=== PATIENT | female | born 1985 | race African-American/Black ===

== ENCOUNTER 2017-01-02 18:13 | Emergency (ER) | payer MEDICARE, OTHER ==
[~2017-01-02 18:13] MED LIST: BENZ100 PO; FLUT1SPR9; ULTR50TA PO; VALT500T PO; ZITH250T PO
[2017-01-02 18:15] VITALS: BP 122/59; PULSE 84; RESP 15; TEMP 99.9; O2SAT 99
--- NOTE | 2017-01-02 18:50 | PD ---
Physical Exam Date Seen by Provider: Jan 02, 2017 Time Seen by Provider: 18:47 Narrative 31 yo female here for abdominal pain. Has had this since today. Nausea and vomit. Pain is 7/10. No diarrhea. No chest pain or SOB. Of note patient is eating and drinking soda in triage. Vitals stable in triage. Awaiting bed placement. Data Data Last Documented VS Vital Signs Date Time Temp Pulse Resp B/P (MAP) Pulse Ox O2 Delivery O2 Flow Rate FiO2 01/02/17 18:15 99.9 84 15 122/59 (80) 99 MDM Medical Record Reviewed: Yes Supervised Visit with KENNY: No Elliott Elizabeth Jan 02, 2017 18:50
[2017-01-02] MEDS ORDERED: SODIUM CHLORIDE 0.9% FLUSH 10 ML FLUSH IV FLUSH PRN (20:00)
--- NOTE | 2017-01-02 20:04 | PD ---
HPI . 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 Patient has been she's had abdominal pain for 24 hours. She feels like a ripping sensation in her entire abdomen. 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 She rates the pain as 9.5 out of 10. Localized to one area and moves around her entire abdomen. She has drawn a aliya shape in her abdomen and told me the pain is located within there. She also reports vaginal discharge and tells me that she has possible STD exposure. PFSH Past Medical History Anxiety: Yes Depression: Yes Cancer: No Diabetes: Yes Diminished Hearing: No Psychiatric: No Immunizations Current: Yes Seizures: No Thyroid Disease: No Ulcer: No Tetanus Vaccination: < 5 Years Influenza Vaccination: No ?: Unknown LMP: 12/28/16 : 0 Past Surgical History Other Surgery: Yes (GANGLION CYST REMOVED FROM WRIST IN PAST) Social History Alcohol Use: Yes (OCCASIONAL) Tobacco Use: No Substance Use: Yes (MARIJUANA) Allergies-Medications (Allergen,Severity, Reaction): Coded Allergies: ibuprofen (Verified Allergy, Severe, Itching, 01/02/17) tramadol (Verified Allergy, Severe, Seizures, 01/02/17) Reported Meds & Prescriptions Reported Meds & Active Scripts Active Flagyl (Metronidazole) 500 Mg Tab 500 Mg PO TID 7 Days Review of Systems General / Constitutional: No: Fever Eyes: No: Visual changes HENT: No: Headaches Cardiovascular: No: Chest Pain or Discomfort Respiratory: No: Shortness of Breath Gastrointestinal: Positive: Abdominal Pain Genitourinary: Positive: Discharge, No: Dysuria Musculoskeletal: No: Pain Skin: No Rash Neurologic: No: Weakness Psychiatric: No: Depression Endocrine: No: Polydipsia Hematologic/Lymphatic: No: Easy Bruising Physical Exam Narrative GENERAL: AAO x 3, no acute distress, Well-nourished, well-developed patient. SKIN: Warm and dry. No visible rashes or bruising. HEAD: Normocephalic and atraumatic. EYES: No scleral icterus. No injection or drainage.PERRLA ENT: No nasal drainage noted. Mucous membranes pink. Airway patent. Moist mucous membranes NECK: Supple, trachea midline. No JVD. CARDIOVASCULAR: Regular rate and rhythm without murmurs, gallops, or rubs. RESPIRATORY: Breath sounds equal bilaterally. No accessory muscle use. No rhonchi or rales. GASTROINTESTINAL: Abdomen soft, patient brushes my hand away with very gentle palpation GENITAL: Lyudmila RN present; + cervical drainage, clear and mucoid like, no cervical motion tenderness, external genitalia normal EXTREMITIES: No cyanosis or edema. BACK: No obvious deformity. No CVA tenderness. NEURO: CN II-12 intact, PSYCH: AAO x 3, normal affect. Data Data Last Documented VS Vital Signs Date Time Temp Pulse Resp B/P (MAP) Pulse Ox O2 Delivery O2 Flow Rate FiO2 01/02/17 21:48 01/02/17 18:15 99.9 84 15 99 Orders Orders Complete Blood Count With Diff (01/02/17 19:49) Comprehensive Metabolic Panel (01/02/17 19:49) Lipase (01/02/17 19:49) Urinalysis - C+S If Indicated (01/02/17 19:49) Ct Abd/Pel W Iv Contrast(Rout) (01/02/17 19:49) Iv Access Insert/Monitor (01/02/17 19:49) Ecg Monitoring (01/02/17 19:49) Oximetry (01/02/17 19:49) Sodium Chloride 0.9% Flush (Ns Flush) (01/02/17 20:00) Gc And Chlamydia Pcr (01/02/17 19:49) Wet Prep Profile (01/02/17 19:49) Ed Urine Pregnancytest Poc (01/02/17 19:49) Azithromycin Powd Pack (Zithromax Powd P (01/02/17 20:15) Ceftriaxone Inj (Rocephin Inj) (01/02/17 20:15) Lidocaine 1% Inj (50 Ml) (Xylocaine 1% I (01/02/17 20:15) Iohexol 350 Inj (Omnipaque 350 Inj) (01/02/17 20:46) Labs Laboratory Tests Test 01/02/17 19:53 01/02/17 20:00 White Blood Count 7.8 TH/MM3 Red Blood Count 4.41 MIL/MM3 Hemoglobin 12.6 GM/DL Hematocrit 38.8 % Mean Corpuscular Volume 87.9 FL Mean Corpuscular Hemoglobin 28.5 PG Mean Corpuscular Hemoglobin Concent 32.4 % Red Cell Distribution Width 14.3 % Platelet Count 314 TH/MM3 Mean Platelet Volume 8.1 FL Neutrophils (%) (Auto) 39.5 % Lymphocytes (%) (Auto) 48.4 % Monocytes (%) (Auto) 5.8 % Eosinophils (%) (Auto) 5.6 % Basophils (%) (Auto) 0.7 % Neutrophils # (Auto) 3.1 TH/MM3 Lymphocytes # (Auto) 3.8 TH/MM3 Monocytes # (Auto) 0.5 TH/MM3 Eosinophils # (Auto) 0.4 TH/MM3 Basophils # (Auto) 0.1 TH/MM3 CBC Comment DIFF FINAL Differential Comment Blood Urea Nitrogen 16 MG/DL Creatinine 1.16 MG/DL Random Glucose 86 MG/DL Total Protein 7.9 GM/DL Albumin 3.7 GM/DL Calcium Level 9.0 MG/DL Alkaline Phosphatase 64 U/L Aspartate Amino Transf (AST/SGOT) 15 U/L Alanine Aminotransferase (ALT/SGPT) 20 U/L Total Bilirubin 0.3 MG/DL Sodium Level 140 MEQ/L Potassium Level 3.7 MEQ/L Chloride Level 105 MEQ/L Carbon Dioxide Level 27.9 MEQ/L Anion Gap 7 MEQ/L Estimat Glomerular Filtration Rate 67 ML/MIN Lipase 207 U/L Urine Color YELLOW Urine Turbidity CLEAR Urine pH 5.5 Urine Specific [place] 1.027 Urine Protein TRACE mg/dL Urine Glucose (UA) NEG mg/dL Urine Ketones NEG mg/dL Urine Occult Blood NEG Urine Nitrite NEG Urine Bilirubin NEG Urine Urobilinogen LESS THAN 2.0 MG/DL Urine Leukocyte Esterase NEG Urine RBC LESS THAN 1 /hpf Urine WBC LESS THAN 1 /hpf Urine Squamous Epithelial Cells 1 /hpf Urine Mucus FEW /lpf Microscopic Urinalysis Comment CULT NOT INDICATED Clue Cells (Wet Prep) PRESENT Vaginal Trichomonas (Wet Prep) NONE SEEN Vaginal Yeast (Wet Prep) NONE SEEN Chlamydia trachomatis DNA (PCR) NOT DETECTED Neisseria gonorrhoeae DNA (PCR) NOT DETECTED MDM Medical Decision Making Medical Screen Exam Complete: Yes Emergency Medical Condition: Yes Medical Record Reviewed: Yes Differential Diagnosis cervicitis, gonorrhea, chlamydia, appendicitis, colitis, gastritis Narrative Course 31 yr old female here with diffuse abdominal pain. Patient has diffuse abdominal pain on exam. Labs ordered. CT abd/pelvis ordered. Patient has some vaginal discharge. I will perform a pelvic exam. Wet prep and GC PCR ordered. I have discussed treatment vs. notification for GC and patient opted for treatment. Azithromycin and Rocephin administered. Laboratory Tests Test 01/02/17 19:53 01/02/17 20:00 White Blood Count 7.8 TH/MM3 Red Blood Count 4.41 MIL/MM3 Hemoglobin 12.6 GM/DL Hematocrit 38.8 % Mean Corpuscular Volume 87.9 FL Mean Corpuscular Hemoglobin 28.5 PG Mean Corpuscular Hemoglobin Concent 32.4 % Red Cell Distribution Width 14.3 % Platelet Count 314 TH/MM3 Mean Platelet Volume 8.1 FL Neutrophils (%) (Auto) 39.5 % Lymphocytes (%) (Auto) 48.4 % Monocytes (%) (Auto) 5.8 % Eosinophils (%) (Auto) 5.6 % Basophils (%) (Auto) 0.7 % Neutrophils # (Auto) 3.1 TH/MM3 Lymphocytes # (Auto) 3.8 TH/MM3 Monocytes # (Auto) 0.5 TH/MM3 Eosinophils # (Auto) 0.4 TH/MM3 Basophils # (Auto) 0.1 TH/MM3 CBC Comment DIFF FINAL Differential Comment Blood Urea Nitrogen 16 MG/DL Creatinine 1.16 MG/DL Random Glucose 86 MG/DL Total Protein 7.9 GM/DL Albumin 3.7 GM/DL Calcium Level 9.0 MG/DL Alkaline Phosphatase 64 U/L Aspartate Amino Transf (AST/SGOT) 15 U/L Alanine Aminotransferase (ALT/SGPT) 20 U/L Total Bilirubin 0.3 MG/DL Sodium Level 140 MEQ/L Potassium Level 3.7 MEQ/L Chloride Level 105 MEQ/L Carbon Dioxide Level 27.9 MEQ/L Anion Gap 7 MEQ/L Estimat Glomerular Filtration Rate 67 ML/MIN Lipase 207 U/L Urine Color YELLOW Urine Turbidity CLEAR Urine pH 5.5 Urine Specific [place] 1.027 Urine Protein TRACE mg/dL Urine Glucose (UA) NEG mg/dL Urine Ketones NEG mg/dL Urine Occult Blood NEG Urine Nitrite NEG Urine Bilirubin NEG Urine Urobilinogen LESS THAN 2.0 MG/DL Urine Leukocyte Esterase NEG Urine RBC LESS THAN 1 /hpf Urine WBC LESS THAN 1 /hpf Urine Squamous Epithelial Cells 1 /hpf Urine Mucus FEW /lpf Microscopic Urinalysis Comment CULT NOT INDICATED Clue Cells (Wet Prep) PRESENT Vaginal Trichomonas (Wet Prep) NONE SEEN Vaginal Yeast (Wet Prep) NONE SEEN Patient appears to have BV. I have discussed the case with my attending Dr. Fraga. She will disposition the patient. Scripts Metronidazole (Flagyl) 500 Mg Tab 500 MG PO TID for Infection for 7 Days, TAB 0 Refills Prov: Irene Fraga MD 01/02/17 Condition: Stable Jo Ruiz Jan 02, 2017 20:04
[2017-01-02] MEDS ORDERED: AZITHROMYCIN PWD FOR SUSP 1 GM PACKET PO ONE (20:15)
[2017-01-02] MEDS ORDERED: LIDOCAINE HCL 1% 50 ML VIAL IM ONE (20:15)
[2017-01-02] MEDS ORDERED: cefTRIAXone 250 MG VIAL IM ONE (20:15)
[2017-01-02 20:19] LABS: AUTOMATED NEUTROPHIL # 3.1 TH/MM3 (1.8-7.7); BASOPHIL # 0.1 TH/MM3 (0-0.2); BASOPHIL % 0.7 % (0.0-2.0); EOSINOPHIL # 0.4 TH/MM3 (0-0.4); EOSINOPHIL % 5.6 % (0.0-4.0); HEMATOCRIT 38.8 % (35.0-46.0); HEMO FLAGS DIFF FINAL; LYMPH % 48.4 % (9.0-44.0); LYMPHOCYTE # 3.8 TH/MM3 (1.0-4.8); MEAN CELL VOLUME 87.9 FL (80.0-100.0); MEAN CORPUSCULAR HEMOGLOBIN 28.5 PG (27.0-34.0); MEAN CORPUSCULAR HGB CONC 32.4 % (32.0-36.0); MONO % 5.8 % (0.0-8.0); NEUT % 39.5 % (16.0-70.0); PLATELET COUNT 314 TH/MM3 (150-450); RED BLOOD COUNT 4.41 MIL/MM3 (4.00-5.30); RED CELL DISTRIBUTION WIDTH 14.3 % (11.6-17.2); WHITE BLOOD COUNT 7.8 TH/MM3 (4.0-11.0)
[2017-01-02 20:36] LABS: ALT (GPT) 20 U/L (10-53)
[2017-01-02 20:37] LABS: BLOOD, URINE NEG (NEG); COMMENT (UR) CULT NOT INDICATED; CULTURE IF INDICATED CULT NOT INDICATED; GLUCOSE,URINE NEG (NEG); KETONE, URINE NEG (NEG); MUCUS URINE FEW /lpf (OCC); NITRITE,URINE NEG (NEG); PH, URINE 5.5 (5.0-8.5); SQUAMOUS EPITHELIAL CELL URINE 1 /hpf (0-5); URINE COLOR YELLOW (YELLW/STRAW)
[2017-01-02 20:38] LABS: ALKALINE PHOSPHATASE 64 U/L (45-117); TOTAL BILIRUBIN ADULT 0.3 MG/DL (0.2-1.0)
[2017-01-02 20:46] LABS: ANION GAP 7 MEQ/L (5-15); AST (GOT) 15 U/L (15-37); BICARBONATE 27.9 MEQ/L (21.0-32.0); BLOOD UREA NITROGEN 16 MG/DL (7-18); CHLORIDE 105 MEQ/L (98-107); GLOMERULAR FILTRATION RATE 67 ML/MIN (>89); POTASSIUM 3.7 MEQ/L (3.5-5.1); SODIUM (NA) 140 MEQ/L (136-145)
[2017-01-02] MEDS ORDERED: IOHEXOL 350 MG/ML 10 ML VIAL (for RAD DIAG) IVCONTRAST ONE (20:46)
--- NOTE | 2017-01-02 21:01 | RADRPT ---
EXAM DATE/TIME: 01/02/2017 20:37 [facility] COMPARISON: No previous studies available for comparison. INDICATIONS : Diffuse abdomen pain for two days. IV CONTRAST: 97 cc Omnipaque 350 (iohexol) IV ORAL CONTRAST: No oral contrast ingested. RADIATION DOSE: 12.31 CTDIvol (mGy) MEDICAL HISTORY : diabetes SURGICAL HISTORY : None. ENCOUNTER: Initial ACUITY: 2 days PAIN SCALE: 10/10 LOCATION: Bilateral abdomen TECHNIQUE: Volumetric scanning of the abdomen and pelvis was performed. Using automated exposure control and ad justment of the mA and/or kV according to patient size, radiation dose was kept as low as reasonably achievable to obtain optimal diagnostic quality images. DICOM format image data is available electro nically for review and comparison. FINDINGS: LOWER LUNGS: The visualized lower lungs are clear. LIVER: Homogeneous density without lesion. There is no dilation of the biliary tree. No calcified gallston es. SPLEEN: Normal size without lesion. PANCREAS: Within normal limits. KIDNEYS: Normal in size and shape. There is no mass, stone or hydronephrosis. ADRENAL GLANDS: Within normal limits. VASCULAR: There is no aortic aneurysm. BOWEL/MESENTERY: The stomach, small bowel, and colon demonstrate no acute abnormality. There is no free intraperitone al air or fluid. Appendix and terminal ileum are normal. ABDOMINAL WALL: Within normal limits. RETROPERITONEUM: There is no lymphadenopathy. BLADDER: No wall thickening or mass. REPRODUCTIVE: Within normal limits. INGUINAL: There is no lymphadenopathy or hernia. MUSCULOSKELETAL: Within normal limits for patient age. CONCLUSION: No acute abnormality is identified in the pelvis. Rober Alfaro MD on January 02, 2017 at 20:57 Board Certified Radiologist. This report was verified electronically.
[2017-01-02] MEDS ORDERED: METR-1 PO (21:41)
--- NOTE | 2017-01-02 21:41 | PD ---
Data Data Last Documented VS Vital Signs Date Time Temp Pulse Resp B/P (MAP) Pulse Ox O2 Delivery O2 Flow Rate FiO2 01/02/17 18:15 99.9 84 15 122/59 (80) 99 Orders Orders Complete Blood Count With Diff (01/02/17 19:49) Comprehensive Metabolic Panel (01/02/17 19:49) Lipase (01/02/17 19:49) Urinalysis - C+S If Indicated (01/02/17 19:49) Ct Abd/Pel W Iv Contrast(Rout) (01/02/17 19:49) Iv Access Insert/Monitor (01/02/17 19:49) Ecg Monitoring (01/02/17 19:49) Oximetry (01/02/17 19:49) Sodium Chloride 0.9% Flush (Ns Flush) (01/02/17 20:00) Gc And Chlamydia Pcr (01/02/17 19:49) Wet Prep Profile (01/02/17 19:49) Ed Urine Pregnancytest Poc (01/02/17 19:49) Azithromycin Powd Pack (Zithromax Powd P (01/02/17 20:15) Ceftriaxone Inj (Rocephin Inj) (01/02/17 20:15) Lidocaine 1% Inj (50 Ml) (Xylocaine 1% I (01/02/17 20:15) Iohexol 350 Inj (Omnipaque 350 Inj) (01/02/17 20:46) Labs Laboratory Tests Test 01/02/17 19:53 01/02/17 20:00 White Blood Count 7.8 TH/MM3 Red Blood Count 4.41 MIL/MM3 Hemoglobin 12.6 GM/DL Hematocrit 38.8 % Mean Corpuscular Volume 87.9 FL Mean Corpuscular Hemoglobin 28.5 PG Mean Corpuscular Hemoglobin Concent 32.4 % Red Cell Distribution Width 14.3 % Platelet Count 314 TH/MM3 Mean Platelet Volume 8.1 FL Neutrophils (%) (Auto) 39.5 % Lymphocytes (%) (Auto) 48.4 % Monocytes (%) (Auto) 5.8 % Eosinophils (%) (Auto) 5.6 % Basophils (%) (Auto) 0.7 % Neutrophils # (Auto) 3.1 TH/MM3 Lymphocytes # (Auto) 3.8 TH/MM3 Monocytes # (Auto) 0.5 TH/MM3 Eosinophils # (Auto) 0.4 TH/MM3 Basophils # (Auto) 0.1 TH/MM3 CBC Comment DIFF FINAL Differential Comment Blood Urea Nitrogen 16 MG/DL Creatinine 1.16 MG/DL Random Glucose 86 MG/DL Total Protein 7.9 GM/DL Albumin 3.7 GM/DL Calcium Level 9.0 MG/DL Alkaline Phosphatase 64 U/L Aspartate Amino Transf (AST/SGOT) 15 U/L Alanine Aminotransferase (ALT/SGPT) 20 U/L Total Bilirubin 0.3 MG/DL Sodium Level 140 MEQ/L Potassium Level 3.7 MEQ/L Chloride Level 105 MEQ/L Carbon Dioxide Level 27.9 MEQ/L Anion Gap 7 MEQ/L Estimat Glomerular Filtration Rate 67 ML/MIN Lipase 207 U/L Urine Color YELLOW Urine Turbidity CLEAR Urine pH 5.5 Urine Specific [place] 1.027 Urine Protein TRACE mg/dL Urine Glucose (UA) NEG mg/dL Urine Ketones NEG mg/dL Urine Occult Blood NEG Urine Nitrite NEG Urine Bilirubin NEG Urine Urobilinogen LESS THAN 2.0 MG/DL Urine Leukocyte Esterase NEG Urine RBC LESS THAN 1 /hpf Urine WBC LESS THAN 1 /hpf Urine Squamous Epithelial Cells 1 /hpf Urine Mucus FEW /lpf Microscopic Urinalysis Comment CULT NOT INDICATED Clue Cells (Wet Prep) PRESENT Vaginal Trichomonas (Wet Prep) NONE SEEN Vaginal Yeast (Wet Prep) NONE SEEN MDM Supervised Visit with KENNY: Yes Narrative Course The history, exam, and medical decision-making in the associated midlevel provider note were completed with my assistance. I reviewed and agree with the findings presented. I attest that I had a [id number] encounter with the patient on the same day, and personally performed and documented my assessment and findings in the medical record. *My assessment and Findings: This is a 31-year-old female who presents to the emergency department with abdominal pain that she described as all over her abdomen. Her labs are all reassuring. She has some clue cells on her wet prep consistent with vaginosis. She was also treated empirically for cervicitis. Patient will be discharged with Flagyl. She asked what she could take for pain and I told her she could take ibuprofen or Tylenol. She said she was allergic to ibuprofen so I told her she could take Tylenol. She said that wouldn't work and she would just go by something on the street. This concerns me for drug- seeking behavior. Patient was discharged home. Diagnosis Primary Impression: Bacterial vaginosis Patient Instructions: General Instructions Additional Instruction: If you develop severe or worsening abdominal pain, fever>100.4, persistent vomiting or inability to eat or drink return to the emergency department immediately. Follow up with your primary care physician in 1-2 days for a check-up. Med/Other Pt SpecificInfo: Prescription(s) given Scripts Metronidazole (Flagyl) 500 Mg Tab 500 MG PO TID for Infection for 7 Days, TAB 0 Refills Prov: Irene Fraga MD 01/02/17 Disposition: DISCHARGE HOME Condition: Stable Irene Fraga MD Jan 02, 2017 21:41
[2017-01-02 23:02] LABS: CHLAMYDIA PCR NOT DETECTED (NOT DETECT); NEISSERIA PCR NOT DETECTED (NOT DETECT)
== END 2017-01-02 21:56 | disposition home or self-care (01) ==
LOC: NEPD 18:13
DX: N76.0 Acute vaginitis (principal); B96.89 Other specified bacterial agents as the cause of diseases classified elsewhere; E11.9 Type 2 diabetes mellitus without complications; Z76.5 Malingerer [conscious simulation]
CPT/HCPCS: 74177; 80053; 81001; 83690; 84703; 85025; 87210; 87491; 87591; 96372; 99285; J0696; Q9967

== ENCOUNTER 2017-04-22 23:46 | Emergency (ER) | payer OTHER, MEDICARE ==
[~2017-04-22] VITALS: Ht 165.1 cm; Wt 85.0 kg
[~2017-04-22 23:46] MED LIST changes: -BENZ100 PO; -FLUT1SPR9; +METR-1 PO; -ULTR50TA PO; -VALT500T PO; -ZITH250T PO
[2017-04-23] VITALS: BP 125/69; PULSE 71; RESP 16; TEMP 98; O2SAT 99
[2017-04-23] MEDS ORDERED: SODIUM CHLORIDE 0.9% FLUSH 10 ML FLUSH IVF PRN (00:15)
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
[2017-04-23 00:26] VITALS: PULSE 71; RESP 16; O2SAT 99
[2017-04-23 00:55] LABS: BACTERIA, URINE FEW /hpf; BILIRUBIN, URINE NEG (NEG); BLOOD, URINE NEG (NEG); GLUCOSE,URINE NEG (NEG); KETONE, URINE NEG (NEG); NITRITE,URINE NEG (NEG); PH, URINE 5.5 (5.0-8.5); SQUAMOUS EPITHELIAL CELL URINE 4 /hpf (0-5); URINE COLOR LIGHT-YELLOW (YELLW/STRAW); URINE LEUKOCYTE ESTERASE NEG (NEG)
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
[2017-04-23] MEDS ORDERED: ROBA750T PO (01:29)
[2017-04-23] MEDS ORDERED: ORPHENADRINE INJ 60 MG/2 ML AMP IM ONE (01:30)
== END 2017-04-23 01:46 | disposition home or self-care (01) ==
LOC: NEPC 23:46
DX: S16.1XXA Strain of muscle, fascia and tendon at neck level, initial encounter (principal); S80.12XA Contusion of left lower leg, initial encounter; S09.90XA Unspecified injury of head, initial encounter; E11.9 Type 2 diabetes mellitus without complications; F32.9 Major depressive disorder, single episode, unspecified; F41.9 Anxiety disorder, unspecified; M54.5 Low back pain; V49.49XA Driver injured in collision with other motor vehicles in traffic accident, initial encounter; Y92.488 Other paved roadways as the place of occurrence of the external cause
CPT/HCPCS: 70450; 71045; 72125; 72170; 73552; 73590; 81001

== ENCOUNTER 2017-07-27 19:42 | Emergency (ER) | payer MEDICARE, OTHER ==
[~2017-07-27] VITALS: Ht 160 cm; Wt 92.0 kg
[~2017-07-27 19:42] MED LIST changes: -METR-1 PO; +ROBA750T PO
[2017-07-27 19:55] VITALS: BP 124/60; PULSE 79; RESP 16; TEMP 98.1; O2SAT 100
== END 2017-07-27 20:31 | disposition left against medical advice (07) ==
LOC: NED 19:42
DX: M54.9 Dorsalgia, unspecified (principal); M54.2 Cervicalgia; Z53.21 Procedure and treatment not carried out due to patient leaving prior to being seen by health care provider
CPT/HCPCS: 99281

== ENCOUNTER 2017-08-17 03:53 | Emergency (ER) | payer MEDICARE, OTHER ==
[~2017-08-17] VITALS: Ht 160 cm; Wt 92.0 kg
[2017-08-17 03:55] VITALS: BP 132/57; PULSE 75; RESP 18; TEMP 98.1; O2SAT 100
[2017-08-17 04:15] VITALS: RESP 16; O2SAT 98
[2017-08-17] MEDS ORDERED: SODIUM CHLORIDE 0.9% FLUSH 10 ML FLUSH IV FLUSH PRN (04:15)
[2017-08-17 04:36] LABS: BASOPHIL # 0.1 TH/MM3 (0-0.2); BASOPHIL % 0.5 % (0.0-2.0); EOSINOPHIL # 0.6 TH/MM3 (0-0.4); EOSINOPHIL % 5.6 % (0.0-4.0); HEMATOCRIT 38.3 % (35.0-46.0); HEMOGLOBIN 13.1 GM/DL (11.6-15.3); LYMPH % 36.7 % (9.0-44.0); LYMPHOCYTE # 3.8 TH/MM3 (1.0-4.8); MEAN CELL VOLUME 85.9 FL (80.0-100.0); MEAN CORPUSCULAR HEMOGLOBIN 29.4 PG (27.0-34.0); MEAN CORPUSCULAR HGB CONC 34.2 % (32.0-36.0); MONO % 8.4 % (0.0-8.0); MONOCYTE # 0.9 TH/MM3 (0-0.9); NEUT % 48.8 % (16.0-70.0); PLATELET COUNT 305 TH/MM3 (150-450); RED BLOOD COUNT 4.46 MIL/MM3 (4.00-5.30); WHITE BLOOD COUNT 10.3 TH/MM3 (4.0-11.0)
[2017-08-17 04:44] LABS: CALCIUM 9.1 MG/DL (8.5-10.1); CREATININE 0.93 MG/DL (0.50-1.00)
--- NOTE | 2017-08-17 05:08 | PD ---
HPI Chief Complaint: Owner Problem/Complaint Time Seen by Provider: 04:21 Travel History International Travel<30 days: No Contact w/Intl Traveler<30days: No Traveled to known affect area: No History of Present Illness HPI Patient is a 31-year-old female at approximately 8 weeks gestational age by ultrasound presents emergency department for evaluation of vaginal spotting starting tonight. Patient denies any abdominal pain. States that she did have a transvaginal ultrasound with Dr. Kay Loving earlier this which confirmed an intrauterine with positive heart tones. Patient is unsure of her blood type, denies any weakness dizziness or fatigue or presyncopal symptoms. States symptoms are moderate, context and associated signs symptoms as above, duration as this evening. PFSH Past Medical History Anxiety: Yes Depression: Yes Cancer: No Diabetes: Yes Patient Takes Glucophage: No Diminished Hearing: No Psychiatric: No Immunizations Current: Yes Seizures: No Thyroid Disease: No Ulcer: No Tetanus Vaccination: Unknown Influenza Vaccination: No ?: LMP: 06/10/2017 : 1 Para: 0 Past Surgical History Other Surgery: Yes (GANGLION CYST REMOVED FROM WRIST IN PAST) Social History Alcohol Use: Yes (OCCASIONAL) Tobacco Use: No Substance Use: No Allergies-Medications (Allergen,Severity, Reaction): Coded Allergies: ibuprofen (Verified Allergy, Severe, Itching, 08/17/17) tramadol (Verified Allergy, Severe, Seizures, 08/17/17) Reported Meds & Prescriptions Reported Meds & Active Scripts Active Pnv 29-1 Tablet ( Vit,Calc76/Iron/Folic) 29 Mg Iron-1 Mg Tablet 1 Tab PO DAILY 30 Days Review of Systems Except as stated in HPI: all other systems reviewed are Neg Physical Exam Narrative GENERAL: Well-developed well-nourished no obvious distress SKIN: Focused skin assessment warm/dry. HEAD: Atraumatic. Normocephalic. EYES: Pupils equal and round. No scleral icterus. No injection or drainage. ENT: No nasal bleeding or discharge. Mucous membranes pink and moist. NECK: Trachea midline. No JVD. CARDIOVASCULAR: Regular rate and rhythm. No murmur appreciated. RESPIRATORY: No accessory muscle use. Clear to auscultation. Breath sounds equal bilaterally. GASTROINTESTINAL: Abdomen soft, non-tender, nondistended. Hepatic and splenic margins not palpable. GENITOURINARY: Exam performed with female nurse transportation analyst present all times, scant blood in the vaginal vault appears to be uterine in origin, the cervix is closed. No lesions seen no tears. MUSCULOSKELETAL: No obvious deformities. No clubbing. No cyanosis. No edema. NEUROLOGICAL: Awake and alert. No obvious cranial nerve deficits. Motor grossly within normal limits. Normal speech. PSYCHIATRIC: Appropriate mood and affect; insight and judgment normal. Data Data Last Documented VS Vital Signs Date Time Temp Pulse Resp B/P (MAP) Pulse Ox O2 Delivery O2 Flow Rate FiO2 08/17/17 04:15 16 98 Room Air 08/17/17 03:55 98.1 75 132/57 (82) Orders Orders Basic Metabolic Panel (Bmp) (08/17/17 04:02) Beta Hcg (Quant/Titer) (08/17/17 04:02) Complete Blood Count With Diff (08/17/17 04:02) Iv Access Insert/Monitor (08/17/17 04:02) Ecg Monitoring (08/17/17 04:02) Oximetry (08/17/17 04:02) Sodium Chloride 0.9% Flush (Ns Flush) (08/17/17 04:15) Abo/Rh Blood Type (08/17/17 04:02) Ed Poc Ultrasound (08/17/17 ) Ed Discharge Order (08/17/17 05:08) Labs Laboratory Tests Test 08/17/17 04:15 White Blood Count 10.3 TH/MM3 Red Blood Count 4.46 MIL/MM3 Hemoglobin 13.1 GM/DL Hematocrit 38.3 % Mean Corpuscular Volume 85.9 FL Mean Corpuscular Hemoglobin 29.4 PG Mean Corpuscular Hemoglobin Concent 34.2 % Red Cell Distribution Width 14.0 % Platelet Count 305 TH/MM3 Mean Platelet Volume 8.0 FL Neutrophils (%) (Auto) 48.8 % Lymphocytes (%) (Auto) 36.7 % Monocytes (%) (Auto) 8.4 % Eosinophils (%) (Auto) 5.6 % Basophils (%) (Auto) 0.5 % Neutrophils # (Auto) 5.0 TH/MM3 Lymphocytes # (Auto) 3.8 TH/MM3 Monocytes # (Auto) 0.9 TH/MM3 Eosinophils # (Auto) 0.6 TH/MM3 Basophils # (Auto) 0.1 TH/MM3 CBC Comment DIFF FINAL Differential Comment Blood Urea Nitrogen 8 MG/DL Creatinine 0.93 MG/DL Random Glucose 95 MG/DL Calcium Level 9.1 MG/DL Sodium Level 138 MEQ/L Potassium Level 4.0 MEQ/L Chloride Level 104 MEQ/L Carbon Dioxide Level 24.0 MEQ/L Anion Gap 10 MEQ/L Estimat Glomerular Filtration Rate 86 ML/MIN Human Chorionic Gonadotropin, Quant 47844 MIU/ML MDM Medical Decision Making Medical Screen Exam Complete: Yes Emergency Medical Condition: Yes Differential Diagnosis Threatened miscarriage, inevitable miscarriage, Rh mismatch peer Narrative Course Patient room to the emergency department, ultrasound did confirm intrauterine . Rh+ by testing today, otherwise labs are reassuring. Discussed with the patient at length that she is at risk of spontaneous miscarriage and unfortunately there is not much we can do to prevent that at her gestational age. Discussed early care including no smoking or drinking no drugs and vitamins which she has not started yet and I have written her prescription. Discussed return to ED criteria, pelvic rest. She is stable for discharge Procedures Procedure Narrative ULTRASOUND: Bedside ultrasound performed transabdominal views obtained of the abdomen and uterus, intrauterine was identified with a positive yolk sac, too early for dating into early for heart tones. Diagnosis Primary Impression: Vaginal bleeding during Additional Instructions: Come back to ER in 48 hours for recheck bloodwork. Med/Other Pt SpecificInfo: Prescription(s) given Scripts Vit,Calc76/Iron/Folic (Pnv 29-1 Tablet) 29 Mg Iron-1 Mg Tablet 1 TAB PO DAILY for 30 Days, 9 Refills Prov: Singh Calvin MD 08/17/17 Disposition: 01 DISCHARGE HOME Condition: Stable Singh Calvin MD August 17, 2017 05:08
[2017-08-17] MEDS ORDERED: PREN1TAB45 PO (05:14)
== END 2017-08-17 05:44 | disposition home or self-care (01) ==
LOC: NEPC 03:53
DX: O26.851 Spotting complicating pregnancy, first trimester (principal); O99.341 Other mental disorders complicating pregnancy, first trimester; F41.9 Anxiety disorder, unspecified; F32.9 Major depressive disorder, single episode, unspecified; O24.911 Unspecified diabetes mellitus in pregnancy, first trimester; Z88.6 Allergy status to analgesic agent; Z3A.08 8 weeks gestation of pregnancy; Z34.91 Encounter for supervision of normal pregnancy, unspecified, first trimester
CPT/HCPCS: 80048; 84702; 85025; 86900; 86901; 99283

== ENCOUNTER 2017-11-07 10:52 | Inpatient (IN) ==
[2017-11-07] MEDS ORDERED: Naloxone Inj 0.4 MG/ML Vial IV.PUSH PRN (11:06)
[2017-11-07] MEDS ORDERED: Sodium Chlor 0.9% Inj 500 ML IV.SIG PRN (11:06)
[2017-11-07] MEDS ORDERED: Oxytocin 30 Units/500ml Premix 30 UNITS/500 ML BAG IV.SIG ONE (11:06)
[2017-11-07] MEDS ORDERED: Sod Chloride 0.9% Inj 1,000 ML IV.CONT PRN (11:06)
[2017-11-07] MEDS ORDERED: fentaNYL Citrate Inj 100 MCG/2 ML Ampul IV.PUSH PRN ×2 (11:06)
[2017-11-07] MEDS ORDERED: Citric Acid/Sodium Citrate Liq 30 ML UDC PO SCH (11:15)
[2017-11-07 11:52] LABS: Baso % (Auto) 0.3 % (0.0-2.0); Eos # (Auto) 0.3 th/mm3 (0.0-0.4); Eos % (Auto) 3.8 % (0.0-4.0); Hematocrit 35.7 % (35.0-46.0); Hemoglobin 12.2 gm/dL (11.6-15.3); Lymph # (Auto) 2.2 th/mm3 (1.0-4.8); Mean Corpuscular HGB Conc 34.1 % (32.0-36.0); Mean Corpuscular Hemoglobin 30.1 pg (27.0-34.0); Mean Corpuscular Volume 88.3 fL (80.0-100.0); Mean Platelet Volume 8.3 fL (7.0-11.0); Mono # (Auto) 0.7 th/mm3 (0.0-0.9); Mono % (Auto) 8.3 % (0.0-8.0); Neut # (Auto) 5.3 th/mm3 (1.8-7.7); Neut % (Auto) 61.6 % (16.0-70.0); Platelet Count 305 th/mm3 (150-450); Red Blood Count 4.04 mil/mm3 (4.00-5.30); White Blood Count 8.6 th/mm3 (4.0-11.0)
[2017-11-07 12:11] LABS: Anion Gap 7 meq/L (5-15); Aspartate Aminotransferase 39 U/L (15-37); Blood Urea Nitrogen 6 mg/dL (7-18); Calcium 9.3 mg/dL (8.5-10.1); Carbon Dioxide 24.1 meq/L (21.0-32.0); Chloride 107 meq/L (98-107); Glomerular Filtration Rate Greater Than 89 mL/min (>89); Glucose,Random 92 mg/dL (74-106); Potassium 3.7 meq/L (3.5-5.1); Sodium 138 meq/L (136-145)
[2017-11-07 12:12] LABS: Alanine Aminotransferase 81 U/L (10-53)
[2017-11-07 12:14] LABS: Alkaline Phosphatase 64 U/L (45-117); Total Protein 7.2 g/dL (6.4-8.2)
[2017-11-07 12:44] LABS: Amphetamine Urine With Conf Neg (Neg); Benzodiazepine Urine With Conf Neg (Neg)
[2017-11-07 12:46] LABS: Amorphous Sediment,Urine Rare /hpf; Bacteria,Urine Rare /hpf; Bilirubin,Urine Negative (Negative); Clarity,Urine Hazy (Clear); Color,Urine Yellow (Yellw/Straw); Glucose,Urine (UA) Negative (Negative); Leukocyte Esterase,Urine Large (Negative); Mucus,Urine Few /lpf (Occasional); Nitrite,Urine Negative (Negative); Specific Gravity,Urine 1.013 (1.002-1.035); Squamous Epithelial Cell,Urine 4 /hpf (0-5)
[2017-11-07] MEDS: Zolpidem Tartrate 5 MG Tablet PO PRN (21:52)
[2017-11-07] MEDS: Senna/Docusate Sodium 8.6/50 MG Tablet PO SCH (21:52)
[2017-11-08] MEDS ORDERED: Morphine Sulfate Inj 2 MG/ML Vial ONE (00:03)
[2017-11-08] MEDS ORDERED: Morphine Inj 4 MG/ML Vial IV.PUSH ONE (00:15)
[2017-11-08] MEDS ORDERED: Morphine Inj 4 MG/ML Vial IV.PUSH PRN ×2 (03:15→15:39)
--- NOTE | 2017-11-08 08:35 | MH ---
cc: Renato Wolf MD DATE OF ADMISSION: 11/07/2017 ADMISSION DIAGNOSES: 1. Intrauterine at 20 weeks. 2. Incompetent cervix. HISTORY OF PRESENT ILLNESS: Ms. Lucas is a 31-year-old black female, para 0-0-0-0, whose last menstrual period and early ultrasound put her right at 20 weeks. She came in today for her routine 20-week ultrasound and was found to have the cervix dilated to 3 cm with a bulging bag of water. She has been put in the hospital, put in steep Trendelenburg position overnight and to attempt a cerclage tomorrow. She understands the risks and the benefits and that there is a fairly good chance that she may lose her baby with this surgery because of inadvertent breaking of water. I have assured her we are going to try to do everything possible in our power to save this baby. She understands. PAST OBSTETRIC HISTORY: Para 0-0-0-0. PAST GYNECOLOGIC HISTORY: Remarkable for HSV. Her cultures for STIs were negative in 08/2017. Her Pap smear was negative in 09/2017. PAST SURGICAL HISTORY: She had a ganglion cyst removed from her wrist. PAST MEDICAL HISTORY: Remarkable for some constipation and a history of abnormal Paps. SOCIAL HISTORY: She is single. She does not drink. She does not smoke, ever. She has used marijuana in the past. No other drug use. FAMILY HISTORY: Noncontributory. ALLERGIES: NO KNOWN DRUG ALLERGIES. MEDICATIONS: vitamins 1 p.o. daily. REVIEW OF SYSTEMS: Denies headache, spots in front of her eyes. No shortness of breath. No chest pain. No abdominal pain. No regular uterine contractions. No rupture of membranes. No bleeding. She does feel the baby move. PHYSICAL EXAMINATION: GENERAL: Reveals a well-developed, well-nourished female, in no acute distress. HEENT: Normocephalic, atraumatic. NECK: Supple. Trachea is in the midline. No thyromegaly or adenopathy. CHEST: Clear to auscultation and percussion. HEART: Has a regular rate and rhythm without murmur. ABDOMEN: Soft, gravid and nontender. Fundus is nontender. EXTREMITIES: No clubbing, cyanosis or edema. PELVIC: Deferred due to the bulging bag of water. ASSESSMENT AND PLAN: 1. Intrauterine at 20 weeks. 2. Incompetent cervix with a cervix dilated at 3 cm and a bulging bag of water. Put her in deep Trendelenburg today, take her to the hospital and try to place a cerclage. She understands the risks of this procedure and that she may lose the baby since the cervix is so open. I feel that if we put her in steep Trendelenburg overnight and give her fluids that we may be able to reverse this and put a nice cerclage in. 3. History of herpes simplex virus. We will give her Valtrex at the end of . 4. History of abnormal Paps. We will followup with Pap smear after the delivery. R. Rober Wolf MD RJV/KD , 10:35 AM , 10:45 AM
[2017-11-08] MEDS: Senna/Docusate Sodium 8.6/50 MG Tablet PO SCH ×2 (10:33→21:48)
[2017-11-08] MEDS ORDERED: Phenylephrine/NS 1000 MCG/10ML Syringe IV.PUSH ONE (12:00)
[2017-11-08] MEDS ORDERED: Bupivacaine/Dextrose 0.75% Inj 2 ML Ampul ONE (12:59)
[2017-11-08] MEDS ORDERED: Nitroglycerin SL (Override) 0.4 MG Tab SL ONE (14:00)
[2017-11-08 16:52] VITALS: O2SAT 97
[2017-11-08] MEDS: Zolpidem Tartrate 5 MG Tablet PO PRN (21:49)
--- NOTE | 2017-11-09 08:11 | P.OBANTE ---
Subjective Interval History: pt states she is leaking urine around the samaniego, heart tones good at bedside, no pain, no VB Objective Vital Signs and I&O: Vital Signs 11/08/17 08:35 11/08/17 08:55 11/08/17 09:40 Temperature Pulse Rate 99 H 104 H 103 H Respiratory Rate Blood Pressure Pulse Oximetry 11/08/17 10:30 11/08/17 10:35 11/08/17 10:40 Temperature Pulse Rate 102 H 106 H 104 H Respiratory Rate 17 Blood Pressure Pulse Oximetry 11/08/17 10:45 11/08/17 10:50 11/08/17 15:25 Temperature 97.6 F Pulse Rate 104 H 105 H 109 H Respiratory Rate 14 Blood Pressure 118/56 L Pulse Oximetry 98 11/08/17 15:30 11/08/17 15:45 11/08/17 16:00 Temperature Pulse Rate 109 H 105 H 87 Respiratory Rate 14 16 19 Blood Pressure 102/52 L 116/51 L 120/57 L Pulse Oximetry 98 98 98 11/08/17 16:15 11/08/17 16:30 11/08/17 16:40 Temperature 98.1 F Pulse Rate 95 H 90 95 H Respiratory Rate 23 20 19 Blood Pressure 110/57 L 114/63 111/59 L Pulse Oximetry 98 98 97 11/08/17 16:50 11/08/17 17:00 11/08/17 20:03 Temperature 97.9 F 98.5 F Pulse Rate 94 H 109 H Respiratory Rate 18 18 Blood Pressure 103/61 119/59 L Pulse Oximetry 11/08/17 22:00 11/08/17 23:43 11/08/17 23:44 Temperature 98.2 F 98.1 F Pulse Rate 98 H 89 Respiratory Rate 18 18 Blood Pressure 119/67 108/65 Pulse Oximetry 11/08/17 23:55 11/09/17 00:00 11/09/17 00:13 Temperature Pulse Rate 111 H 106 H Respiratory Rate 18 Blood Pressure 110/67 Pulse Oximetry 11/09/17 02:20 11/09/17 03:30 11/09/17 04:00 Temperature 97.8 F Pulse Rate 104 H 102 H 103 H Respiratory Rate 18 Blood Pressure 123/63 119/73 113/59 L Pulse Oximetry 11/09/17 05:15 11/09/17 07:41 Temperature 98.2 F 97.8 F Pulse Rate 105 H 107 H Respiratory Rate 18 18 Blood Pressure 112/68 115/67 Pulse Oximetry Intake & Output 11/08/17 11/09/17 11/09/17 18:59 06:59 18:59 Intake Total 3610 / 3610 1000 / 1000 Output Total 480 / 480 Balance 3130 / 3130 1000 / 1000 Intake: IV 2100 / 2100 1000 / 1000 LR 1000 mL Inj 1,000 ML @ 100 2000 / 2000 1000 / 1000 mls/hr IV.CONT .Q10H [facility] Rx#: [id number] Ancef Inj 1,000 MG In NS Inj 100 / 100 100 ML @ 200 mls/hr IV.SIG STEEL FIXER [facility] Rx#:[id number] Oral 10 / 10 Anesthesia Amount 1500 / 1500 Output: Estimated Blood Loss 5 / 5 Urine Amount (Catheter) 475 / 475 3-way Urethral 400 / 400 Indwelling Urethral Catheter 75 / 75 Physical Exam: GENERAL: Well-nourished, well-developed patient. CARDIOVASCULAR: Regular rate and rhythm without murmurs, gallops, or rubs. RESPIRATORY: Breath sounds equal bilaterally. No accessory muscle use. ABDOMEN/GI: Abdomen soft, non-tender. Fundus: [-] GENITOURINARY: External Genitalia: intact and normal in appearance Cervix: [-] deferred Dilatation: [-] Effacement: [-] Station: [-] Presentation: [-] Membranes: [-] Uterine Contractions: [-] FHT's: Category: [-] Baseline: [-] 140s Reactive: [-] Variability: [-] Decels: [-] EXTREMITIES: No cyanosis or edema, non-tender, without signs of DVT. Assessment and Plan - Diagnosis (1) Incompetent cervix Code(s): N88.3 - Incompetence of cervix uteri Status: Acute - Plan IUP at 20+wks, s/p rescue cerclage with Dr Wolf, POD #1 trendelenburg will d/c samaniego and allow pt to use bedside commode, pt states she cannot use bedpan strict BR otherwise SCDs reg diet Discharge Planning: does not meet criteria - Attending Attestation pt seen by me
[2017-11-09] MEDS: Senna/Docusate Sodium 8.6/50 MG Tablet PO SCH ×2 (10:08→20:40)
[2017-11-09] MEDS: Prenatal Vit/Ca/Iron/Folic Acid Tablet PO SCH (10:09)
--- NOTE | 2017-11-10 08:46 | P.OBANTE ---
Subjective Interval History: 32 yo bf G1 at 20+ who underwent a rescue cerclage on Monday. Cervix reported to be 3 cm with visible head and BBOW at the time of cerclage. She has been on bedrest since, with trips to the portable toilet at bedside. She is constipated. She says she has good support and ready to go home Monday with help of sister and mother. Feel pressure in the lower pelvis. No discharge or bleeding today. Had reported fluid leak that she knew was not urine but she is reported to me today as intact. Objective Vital Signs and I&O: Vital Signs 11/09/17 12:55 11/09/17 12:56 11/09/17 16:20 Temperature 98.3 F 98.1 F Pulse Rate 77 Respiratory Rate 17 Blood Pressure 122/61 11/09/17 16:21 11/09/17 19:44 11/10/17 02:00 Temperature 99.0 F 98.9 F Pulse Rate 93 H 80 Respiratory Rate 19 18 18 Blood Pressure 111/77 124/50 L 11/10/17 05:00 11/10/17 07:50 Temperature 98.5 F Pulse Rate 98 H Respiratory Rate 18 18 Blood Pressure 130/70 Intake & Output 11/09/17 11/10/17 11/10/17 18:59 06:59 18:59 Intake Total 1000 / 1000 Balance 1000 / 1000 Intake: IV 1000 / 1000 LR 1000 mL Inj 1,000 ML @ 100 1000 / 1000 mls/hr IV.CONT .Q10H [facility] Rx#: [id number] Physical Exam: GENERAL: Well-nourished, well-developed patient. CARDIOVASCULAR: Regular rate and rhythm without murmurs, gallops, or rubs. RESPIRATORY: Breath sounds equal bilaterally. No accessory muscle use. ABDOMEN/GI: Abdomen soft, non-tender. fundus at umblicus GENITOURINARY: External Genitalia: intact and normal in appearance will not tolerate digital exam perineum dry EXTREMITIES: No cyanosis or edema, non-tender, without signs of DVT. Assessment and Plan - Diagnosis (1) Incompetent cervix Code(s): N88.3 - Incompetence of cervix uteri Status: Acute - Plan IUP at 20+wks, s/p rescue cerclage with Dr Wolf, POD #1 trendelenburg will d/c samaniego and allow pt to use bedside commode, pt states she cannot use bedpan strict BR otherwise SCDs reg diet Discharge Plannin+ week with cerclage placed initial exam highly concerning and cerclage considered a "rescue cerclage" with high risk of failure concern that Lynsey not getting enough physical movement and at risk for DVT or PE not wearing sequentials at this time (they are off) Not having regular bowel movement She is caught between avoiding pressure on stitch and needed mobility for her own health She states that Dr. Meza wants no one to check her cervix and to keep her through Monday Encourage walking to bathroom. wants a shower obtain sonogram aspirin daily re evaluate monday
[2017-11-10] MEDS: Prenatal Vit/Ca/Iron/Folic Acid Tablet PO SCH (08:57)
[2017-11-10] MEDS: Senna/Docusate Sodium 8.6/50 MG Tablet PO SCH ×2 (08:57→20:21)
[2017-11-10] MEDS: Polyethylene Glycol 3350 17 GM Packet PO SCH (10:50)
[2017-11-10] MEDS ORDERED: ceFAZolin Inj 2,000 MG in Sodium Chlor 0.9% Inj 100 ML IV.SIG ONE (16:15)
--- NOTE | 2017-11-10 16:33 | P.OBANTE ---
Subjective Interval History: Had a gush of fluid that is amnisure positive she is distraught checked by Dr. Kim while I was in section finger in vault only which was empty no fever no odor no purulence does feel pressure Objective Vital Signs and I&O: Vital Signs 11/09/17 19:44 11/10/17 02:00 11/10/17 05:00 Temperature 99.0 F 98.9 F Pulse Rate 80 Respiratory Rate 18 18 18 Blood Pressure 124/50 L 11/10/17 07:50 11/10/17 11:40 11/10/17 11:41 Temperature 98.5 F 98.9 F Pulse Rate 98 H 99 H Respiratory Rate 18 18 Blood Pressure 130/70 125/65 Intake & Output 11/09/17 11/10/17 11/10/17 18:59 06:59 18:59 Intake Total 1000 / 1000 Balance 1000 / 1000 Intake: IV 1000 / 1000 LR 1000 mL Inj 1,000 ML @ 100 1000 / 1000 mls/hr IV.CONT .Q10H [facility] Rx#: [id number] Lab and Micro Results: Laboratory Results - last 24 hr 11/07/17 11:05 Ur Buprenorphine Negative Ur Heroin Screen Negative Urine Oxycodone Negative Ur Methadone Negative U Hydromorphone Confirm Negative Urine Fentanyl Negative Urine Gabapentin Negative Ur Phencyclidine (PCP) Negative Urine MDPV Negative Ur MDMA & Metabolites Negative Ur Synth THC (K2) Negative Physical Exam: GENERAL: Well-nourished, well-developed patient. CARDIOVASCULAR: Regular rate and rhythm without murmurs, gallops, or rubs. RESPIRATORY: Breath sounds equal bilaterally. No accessory muscle use. ABDOMEN/GI: Abdomen soft, non-tender. Fundus: [-] GENITOURINARY: External Genitalia: intact and normal in appearance Cervix: [-] Dilatation: [-] Effacement: [-] Station: [-] Presentation: [-] Membranes: [-] Uterine Contractions: [-] FHT's: Category: [-] Baseline: [-] Reactive: [-] Variability: [-] Decels: [-] EXTREMITIES: No cyanosis or edema, non-tender, without signs of DVT. Assessment and Plan - Diagnosis (1) Incompetent cervix Code(s): N88.3 - Incompetence of cervix uteri Status: Acute (2) Obstetric problem in patient at greater than 20 weeks gestation Code(s): O26.90 - related conditions, unspecified, unspecified trimester Status: Acute (3) premature rupture of membranes Code(s): O42.919 - premature rupture of membranes, unspecified as to length of time between rupture and onset of labor, unspecified trimester Status: Acute (4) Cervical cerclage suture present Code(s): O34.30 - Maternal care for cervical incompetence, unspecified trimester Status: Acute - Plan IUP at 20+wks, s/p rescue cerclage with Dr Wolf, POD #1 trendelenburg will d/c samaniego and allow pt to use bedside commode, pt states she cannot use bedpan strict BR otherwise SCDs reg diet Discharge Plannin+ week with cerclage placed initial exam highly concerning and cerclage considered a "rescue cerclage" with high risk of failure concern that Lynsey not getting enough physical movement and at risk for DVT or PE not wearing sequentials at this time (they are off) Not having regular bowel movement She is caught between avoiding pressure on stitch and needed mobility for her own health She states that Dr. Meza wants no one to check her cervix and to keep her through Monday Encourage walking to bathroom. wants a shower obtain sonogram aspirin daily re evaluate monday
--- NOTE | 2017-11-10 16:55 | P.OBANTE ---
Subjective Interval History: spoke with Lynsey's mom and sister. Aware of likelihood that infection and labor will develop. At that point the cerclage will need to be removed. Lynsey will need an epidural for this. If she gets to 23 weeks without infection or labor, we will consider transfer to [facility]. Objective Vital Signs and I&O: Vital Signs 11/09/17 19:44 11/10/17 02:00 11/10/17 05:00 Temperature 99.0 F 98.9 F Pulse Rate 80 Respiratory Rate 18 Blood Pressure 124/50 L 11/10/17 07:50 11/10/17 11:40 11/10/17 11:41 Temperature 98.5 F 98.9 F Pulse Rate 98 H 99 H Respiratory Rate 18 Blood Pressure 130/70 125/65 11/10/17 16:50 Temperature 98.3 F Pulse Rate Respiratory Rate Blood Pressure Intake & Output 11/09/17 11/10/17 11/10/17 18:59 06:59 18:59 Intake Total 1000 / 1000 Balance 1000 / 1000 Intake: IV 1000 / 1000 LR 1000 mL Inj 1,000 ML @ 100 1000 / 1000 mls/hr IV.CONT .Q10H [facility] Rx#: [id number] Lab and Micro Results: Laboratory Results - last 24 hr 11/07/17 11:05 Ur Buprenorphine Negative Ur Heroin Screen Negative Urine Oxycodone Negative Ur Methadone Negative U Hydromorphone Confirm Negative Urine Fentanyl Negative Urine Gabapentin Negative Ur Phencyclidine (PCP) Negative Urine MDPV Negative Ur MDMA & Metabolites Negative Ur Synth THC (K2) Negative Physical Exam: GENERAL: Well-nourished, well-developed patient. CARDIOVASCULAR: Regular rate and rhythm without murmurs, gallops, or rubs. RESPIRATORY: Breath sounds equal bilaterally. No accessory muscle use. ABDOMEN/GI: Abdomen soft, non-tender. Fundus: [-] GENITOURINARY: External Genitalia: intact and normal in appearance Cervix: [-] Dilatation: [-] Effacement: [-] Station: [-] Presentation: [-] Membranes: [-] Uterine Contractions: [-] FHT's: Category: [-] Baseline: [-] Reactive: [-] Variability: [-] Decels: [-] EXTREMITIES: No cyanosis or edema, non-tender, without signs of DVT. Assessment and Plan - Diagnosis (1) Incompetent cervix Code(s): N88.3 - Incompetence of cervix uteri Status: Acute (2) Obstetric problem in patient at greater than 20 weeks gestation Code(s): O26.90 - related conditions, unspecified, unspecified trimester Status: Acute (3) premature rupture of membranes Code(s): O42.919 - premature rupture of membranes, unspecified as to length of time between rupture and onset of labor, unspecified trimester Status: Acute (4) Cervical cerclage suture present Code(s): O34.30 - Maternal care for cervical incompetence, unspecified trimester Status: Acute - Plan IUP at 20+wks, s/p rescue cerclage with Dr Wolf, POD #1 trendelenburg will d/c samaniego and allow pt to use bedside commode, pt states she cannot use bedpan strict BR otherwise SCDs reg diet Discharge Plannin+ week with cerclage placed initial exam highly concerning and cerclage considered a "rescue cerclage" with high risk of failure concern that Lynsey not getting enough physical movement and at risk for DVT or PE not wearing sequentials at this time (they are off) Not having regular bowel movement She is caught between avoiding pressure on stitch and needed mobility for her own health She states that Dr. Meza wants no one to check her cervix and to keep her through Monday Encourage walking to bathroom. wants a shower obtain sonogram aspirin daily re evaluate monday
[2017-11-10] MEDS: LORazepam 1 MG Tablet PO PRN (20:47)
[2017-11-11 07:35] LABS: Baso % (Auto) 0.4 % (0.0-2.0); Eos # (Auto) 0.3 th/mm3 (0.0-0.4); Eos % (Auto) 5.1 % (0.0-4.0); Hematocrit 32.4 % (35.0-46.0); Hemoglobin 10.9 gm/dL (11.6-15.3); Lymph # (Auto) 1.9 th/mm3 (1.0-4.8); Mean Corpuscular HGB Conc 33.8 % (32.0-36.0); Mean Corpuscular Hemoglobin 29.8 pg (27.0-34.0); Mean Corpuscular Volume 88.1 fL (80.0-100.0); Mean Platelet Volume 7.9 fL (7.0-11.0); Mono # (Auto) 0.6 th/mm3 (0.0-0.9); Mono % (Auto) 9.4 % (0.0-8.0); Neut # (Auto) 3.7 th/mm3 (1.8-7.7); Neut % (Auto) 56.1 % (16.0-70.0); Platelet Count 262 th/mm3 (150-450); Red Blood Count 3.67 mil/mm3 (4.00-5.30); White Blood Count 6.5 th/mm3 (4.0-11.0)
[2017-11-11] MEDS: Senna/Docusate Sodium 8.6/50 MG Tablet PO SCH ×2 (09:06→20:32)
[2017-11-11] MEDS: Polyethylene Glycol 3350 17 GM Packet PO SCH (09:07)
--- NOTE | 2017-11-11 10:18 | P.OBANTE ---
Subjective Interval History: quiet night remains fearful of moving some minimal leaking no cramping moved bowels yesterday Objective Vital Signs and I&O: Vital Signs 11/10/17 11:40 11/10/17 11:41 11/10/17 16:50 Temperature 98.9 F 98.3 F Pulse Rate 99 H Respiratory Rate 18 Blood Pressure 125/65 11/10/17 18:41 11/10/17 18:42 11/10/17 20:00 Temperature 98.2 F Pulse Rate 81 Respiratory Rate 18 Blood Pressure 124/52 L 11/10/17 20:24 11/10/17 22:00 11/11/17 02:45 Temperature 98.2 F 98.2 F 98.3 F Pulse Rate 84 88 Respiratory Rate 16 16 Blood Pressure 117/58 L 125/59 L 11/11/17 07:46 11/11/17 07:59 Temperature 97.7 F Pulse Rate 81 Respiratory Rate 16 Blood Pressure 128/61 Intake & Output 11/10/17 11/11/17 11/11/17 18:59 06:59 18:59 Intake Total 1200 / 1200 Balance 1200 / 1200 Intake: IV 1200 / 1200 LR 1000 mL Inj 1,000 ML @ 100 1000 / 1000 mls/hr IV.CONT .Q10H [facility] Rx#: [id number] Ancef Inj 1,000 MG In NS Inj 200 / 200 100 ML @ 200 mls/hr IV.SIG Q6H [facility] Rx#:[id number] Lab and Micro Results: Laboratory Results - last 24 hr 11/11/17 07:21 WBC 6.5 RBC 3.67 L Hgb 10.9 L Hct 32.4 L MCV 88.1 MCH 29.8 MCHC 33.8 RDW 14.0 Plt Count 262 MPV 7.9 Neut % (Auto) 56.1 Lymph % (Auto) 29.0 [place] % (Auto) 9.4 H Eos % (Auto) 5.1 H Baso % (Auto) 0.4 Neut # (Auto) 3.7 Lymph # (Auto) 1.9 [place] # (Auto) 0.6 Eos # (Auto) 0.3 Baso # (Auto) 0.0 WBC Differential . Differential Comment Auto diff final Physical Exam: GENERAL: Well-nourished, well-developed patient. CARDIOVASCULAR: Regular rate and rhythm without murmurs, gallops, or rubs. RESPIRATORY: Breath sounds equal bilaterally. No accessory muscle use. ABDOMEN/GI: Abdomen soft, non-tender. Fundus: non tender GENITOURINARY: External Genitalia: intact and normal in appearance EXTREMITIES: No cyanosis or edema, non-tender, without signs of DVT. Assessment and Plan - Diagnosis (1) Incompetent cervix Code(s): N88.3 - Incompetence of cervix uteri Status: Acute (2) Obstetric problem in patient at greater than 20 weeks gestation Code(s): O26.90 - related conditions, unspecified, unspecified trimester Status: Acute (3) premature rupture of membranes Code(s): O42.919 - premature rupture of membranes, unspecified as to length of time between rupture and onset of labor, unspecified trimester Status: Acute (4) Cervical cerclage suture present Code(s): O34.30 - Maternal care for cervical incompetence, unspecified trimester Status: Acute - Plan IUP at 20+wks, s/p rescue cerclage with Dr Wolf, POD #1 trendelenburg will d/c samaniego and allow pt to use bedside commode, pt states she cannot use bedpan strict BR otherwise SCDs reg diet 11/11/17 remains stable no evidence of infection counseled patient and mom in depth about production of fluid and not to be frightened of moving. can show, move in the bed, use the bathroom continue supportive care Discharge Plannin+ week with cerclage placed initial exam highly concerning and cerclage considered a "rescue cerclage" with high risk of failure concern that Lynsey not getting enough physical movement and at risk for DVT or PE not wearing sequentials at this time (they are off) Not having regular bowel movement She is caught between avoiding pressure on stitch and needed mobility for her own health She states that Dr. Meza wants no one to check her cervix and to keep her through Monday Encourage walking to bathroom. wants a shower obtain sonogram aspirin daily re evaluate monday
[2017-11-11] MEDS: LORazepam 1 MG Tablet PO PRN (20:41)
--- NOTE | 2017-11-12 09:17 | P.OBANTE ---
Subjective Interval History: Quiet 24 hours no bleeding no pressure or cramping no fever, malaise having bowel movements Objective Vital Signs and I&O: Vital Signs 11/11/17 13:43 11/11/17 14:05 11/11/17 20:00 Temperature 98.1 F 98.7 F Pulse Rate 94 H 76 Respiratory Rate 16 14 Blood Pressure 126/63 112/56 L 11/11/17 21:39 11/12/17 03:50 11/12/17 03:51 Temperature 98.3 F 98.1 F Pulse Rate 75 Respiratory Rate 16 Blood Pressure 117/54 L 11/12/17 06:17 Temperature 97.9 F Pulse Rate Respiratory Rate Blood Pressure Intake & Output 11/11/17 11/12/17 11/12/17 18:59 06:59 18:59 Intake Total 1200 / 1200 100 / 100 Balance 1200 / 1200 100 / 100 Intake: IV 1200 / 1200 100 / 100 LR 1000 mL Inj 1,000 ML @ 100 1000 / 1000 mls/hr IV.CONT .Q10H [facility] Rx#: [id number] Ancef Inj 1,000 MG In NS Inj 200 / 200 100 / 100 100 ML @ 200 mls/hr IV.SIG Q6H [facility] Rx#:[id number] Physical Exam: GENERAL: Well-nourished, well-developed patient. CARDIOVASCULAR: Regular rate and rhythm without murmurs, gallops, or rubs. RESPIRATORY: Breath sounds equal bilaterally. No accessory muscle use. ABDOMEN/GI: Abdomen soft, non-tender. Fundus: nontender GENITOURINARY: External Genitalia: intact and normal in appearance EXTREMITIES: No cyanosis or edema, non-tender, without signs of DVT. Assessment and Plan - Diagnosis (1) Incompetent cervix Code(s): N88.3 - Incompetence of cervix uteri Status: Acute (2) Obstetric problem in patient at greater than 20 weeks gestation Code(s): O26.90 - related conditions, unspecified, unspecified trimester Status: Acute (3) premature rupture of membranes Code(s): O42.919 - premature rupture of membranes, unspecified as to length of time between rupture and onset of labor, unspecified trimester Status: Acute (4) Cervical cerclage suture present Code(s): O34.30 - Maternal care for cervical incompetence, unspecified trimester Status: Acute - Plan IUP at 20+wks, s/p rescue cerclage with Dr Wolf, POD #1 trendelenburg will d/c samaniego and allow pt to use bedside commode, pt states she cannot use bedpan strict BR otherwise SCDs reg diet 11/11/17 remains stable no evidence of infection counseled patient and mom in depth about production of fluid and not to be frightened of moving. can show, move in the bed, use the bathroom continue supportive care 11/12/17 no changes in interval 24 hours no evidence infection or contractions goal is to get to 23 weeks and transfer to [facility] 4 cm [facility] yesterday on ultrasound encouraged to move Discharge Plannin+ week with cerclage placed initial exam highly concerning and cerclage considered a "rescue cerclage" with high risk of failure concern that Lynsey not getting enough physical movement and at risk for DVT or PE not wearing sequentials at this time (they are off) Not having regular bowel movement She is caught between avoiding pressure on stitch and needed mobility for her own health She states that Dr. Meza wants no one to check her cervix and to keep her through Monday Encourage walking to bathroom. wants a shower obtain sonogram aspirin daily re evaluate monday
[2017-11-12] MEDS: Polyethylene Glycol 3350 17 GM Packet PO SCH (09:45)
[2017-11-12] MEDS: Senna/Docusate Sodium 8.6/50 MG Tablet PO SCH ×2 (09:45→21:39)
[2017-11-12] MEDS: LORazepam 1 MG Tablet PO PRN ×2 (13:00→21:39)
[2017-11-12] MEDS ORDERED: LORazepam 0.5 MG Tablet PO ONE (13:45)
[2017-11-12 22:32] LABS: Baso % (Auto) 0.2 % (0.0-2.0); Eos # (Auto) 0.3 th/mm3 (0.0-0.4); Hematocrit 32.5 % (35.0-46.0); Lymph # (Auto) 2.4 th/mm3 (1.0-4.8); Lymph % (Auto) 33.6 % (9.0-44.0); Mean Corpuscular Hemoglobin 29.8 pg (27.0-34.0); Mean Corpuscular Volume 87.7 fL (80.0-100.0); Mono # (Auto) 0.6 th/mm3 (0.0-0.9); Mono % (Auto) 8.5 % (0.0-8.0); Neut # (Auto) 3.8 th/mm3 (1.8-7.7); Neut % (Auto) 53.7 % (16.0-70.0); Platelet Count 269 th/mm3 (150-450); Red Cell Distribution Width 13.5 % (11.6-17.2)
[2017-11-12] MEDS: Clindamycin 600 mg/NS Premix 600 MG/50 ML PIGGYBACK IV.SIG SCH (22:54)
[2017-11-13] MEDS: Clindamycin 600 mg/NS Premix 600 MG/50 ML PIGGYBACK IV.SIG SCH ×4 (04:58→22:06)
[2017-11-13] MEDS: Senna/Docusate Sodium 8.6/50 MG Tablet PO SCH ×2 (09:32→20:53)
[2017-11-13 10:56] LABS: Baso % (Auto) 0.1 % (0.0-2.0); Eos # (Auto) 0.2 th/mm3 (0.0-0.4); Eos % (Auto) 2.7 % (0.0-4.0); Hematocrit 32.8 % (35.0-46.0); Hemoglobin 11.1 gm/dL (11.6-15.3); Lymph # (Auto) 1.4 th/mm3 (1.0-4.8); Lymph % (Auto) 18.1 % (9.0-44.0); Mean Corpuscular Volume 88.1 fL (80.0-100.0); Mean Platelet Volume 8.3 fL (7.0-11.0); Mono # (Auto) 0.4 th/mm3 (0.0-0.9); Mono % (Auto) 4.8 % (0.0-8.0); Neut # (Auto) 5.7 th/mm3 (1.8-7.7); Neut % (Auto) 74.3 % (16.0-70.0); Platelet Count 268 th/mm3 (150-450); Red Blood Count 3.72 mil/mm3 (4.00-5.30); Red Cell Distribution Width 13.8 % (11.6-17.2); White Blood Count 7.7 th/mm3 (4.0-11.0)
[2017-11-13 11:20] LABS: Alanine Aminotransferase 62 U/L (10-53); Albumin 2.5 g/dL (3.4-5.0); Anion Gap 8 meq/L (5-15); Aspartate Aminotransferase 43 U/L (15-37); Blood Urea Nitrogen 5 mg/dL (7-18); Calcium 8.6 mg/dL (8.5-10.1); Carbon Dioxide 25.4 meq/L (21.0-32.0); Chloride 107 meq/L (98-107); Glomerular Filtration Rate Greater Than 89 mL/min (>89); Glucose,Random 110 mg/dL (74-106); Potassium 3.3 meq/L (3.5-5.1); Sodium 140 meq/L (136-145)
[2017-11-13 11:22] LABS: Alkaline Phosphatase 60 U/L (45-117); Total Protein 6.1 g/dL (6.4-8.2)
--- NOTE | 2017-11-13 13:38 | P.OBANTE ---
Objective Vital Signs and I&O: Vital Signs 11/12/17 19:40 11/12/17 21:37 11/12/17 22:12 Temperature 98.9 F 99.2 F 98.8 F Pulse Rate 85 Respiratory Rate 16 Blood Pressure 112/56 L 11/12/17 23:00 11/13/17 01:16 11/13/17 04:00 Temperature 98.6 F 98.2 F Pulse Rate 79 90 Respiratory Rate 16 14 Blood Pressure 108/52 L 126/63 11/13/17 08:31 11/13/17 11:11 11/13/17 11:13 Temperature 97.5 F L 97.8 F Pulse Rate 92 H Respiratory Rate 18 18 Blood Pressure 123/63 11/13/17 11:14 Temperature Pulse Rate 84 Respiratory Rate Blood Pressure 123/63 Intake & Output 11/12/17 11/13/17 11/13/17 18:59 06:59 18:59 Intake Total 200 / 200 1400 / 1400 Balance 200 / 200 1400 / 1400 Intake: IV 200 / 200 1400 / 1400 LR 1000 mL Inj 1,000 ML @ 100 1000 / 1000 mls/hr IV.CONT .Q10H [facility] Rx#: [id number] Ofirmev Inj 1,000 mg In 100 ml 100 / 100 @ 400 mls/hr IV.SIG ONCE ONE Rx #:[id number] Cleocin 600 mg/NS Premix 600 mg 100 / 100 In 50 ml @ 100 mls/hr IV.SIG Q6H [facility] Rx#:[id number] Ancef Inj 1,000 MG In NS Inj 200 / 200 200 / 200 100 ML @ 200 mls/hr IV.SIG Q6H [facility] Rx#:[id number] Lab and Micro Results: Laboratory Results - last 24 hr 11/12/17 11/13/17 11/13/17 22:04 09:40 09:40 WBC 7.0 7.7 RBC 3.70 L 3.72 L Hgb 11.0 L 11.1 L Hct 32.5 L 32.8 L MCV 87.7 88.1 MCH 29.8 30.0 MCHC 34.0 34.0 RDW 13.5 13.8 Plt Count 269 268 MPV 8.0 8.3 Neut % (Auto) 53.7 74.3 H Lymph % (Auto) 33.6 18.1 [place] % (Auto) 8.5 H 4.8 Eos % (Auto) 4.0 2.7 Baso % (Auto) 0.2 0.1 Neut # (Auto) 3.8 5.7 Lymph # (Auto) 2.4 1.4 [place] # (Auto) 0.6 0.4 Eos # (Auto) 0.3 0.2 Baso # (Auto) 0.0 0.0 WBC Differential . . Differential Comment Auto diff final Auto diff final Sodium 140 Potassium 3.3 L Chloride 107 Carbon Dioxide 25.4 Anion Gap 8 BUN 5 L Creatinine 0.76 Estimated GFR Greater than 89 Random Glucose 110 H Calcium 8.6 Total Bilirubin 0.2 AST 43 H ALT 62 H Alkaline Phosphatase 60 Total Protein 6.1 L D Albumin 2.5 L Physical Exam: GENERAL: Well-nourished, well-developed patient. CARDIOVASCULAR: Regular rate and rhythm without murmurs, gallops, or rubs. RESPIRATORY: Breath sounds equal bilaterally. No accessory muscle use. ABDOMEN/GI: Abdomen soft, non-tender, EXTREMITIES: No cyanosis or edema, non-tender, without signs of DVT. 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 Pt wants everything done. continue supportive care Discharge Planning: plan to transfer to level 3 NICU at 23 weeks
[2017-11-13] MEDS: KCL 20 mEq/NACL 0.45% Inj 1,000 ML IV.SIG SCH (15:21)
[2017-11-13] MEDS: Polyethylene Glycol 3350 17 GM Packet PO SCH (16:44)
[2017-11-13] MEDS: Zolpidem Tartrate 5 MG Tablet PO PRN (20:54)
[2017-11-14] MEDS: KCL 20 mEq/NACL 0.45% Inj 1,000 ML IV.SIG SCH (04:31)
[2017-11-14] MEDS: Clindamycin 600 mg/NS Premix 600 MG/50 ML PIGGYBACK IV.SIG SCH ×3 (04:32→16:28)
[2017-11-14] MEDS: Senna/Docusate Sodium 8.6/50 MG Tablet PO SCH ×2 (08:58→20:16)
--- NOTE | 2017-11-14 17:38 | P.OBANTE ---
Objective Vital Signs and I&O: Vital Signs 11/13/17 19:41 11/13/17 20:45 11/13/17 22:23 Temperature 97.7 F Pulse Rate 87 Respiratory Rate 16 16 16 Blood Pressure 133/71 11/14/17 00:00 11/14/17 00:01 11/14/17 04:16 Temperature 98.6 F 98.6 F Pulse Rate 97 H Respiratory Rate 16 16 Blood Pressure 138/65 11/14/17 04:17 11/14/17 09:48 11/14/17 09:49 Temperature 98.0 F Pulse Rate 82 89 Respiratory Rate 16 Blood Pressure 123/60 117/59 L 11/14/17 14:00 11/14/17 16:59 Temperature 98.5 F 99.0 F Pulse Rate 81 Respiratory Rate 18 Blood Pressure 107/57 L Intake & Output 11/13/17 11/14/17 11/14/17 18:59 06:59 18:59 Intake Total 300 / 300 1300 / 1300 50 / 50 Balance 300 / 300 1300 / 1300 50 / 50 Intake: IV 300 / 300 1300 / 1300 50 / 50 Cleocin 600 mg/NS Premix 600 mg 100 / 100 100 / 100 50 / 50 In 50 ml @ 100 mls/hr IV.SIG Q6H [facility] Rx#:[id number] Potassium Chlor 20 mEq/NACL 0. 1000 / 1000 45% Inj 1,000 ML @ 100 mls/hr IV.SIG .Q10H [facility] Rx#:[id number] Ancef Inj 1,000 MG In NS Inj 200 / 200 200 / 200 100 ML @ 200 mls/hr IV.SIG Q6H [facility] Rx#:[id number] Physical Exam: GENERAL: Well-nourished, well-developed patient. CARDIOVASCULAR: Regular rate and rhythm without murmurs, gallops, or rubs. RESPIRATORY: Breath sounds equal bilaterally. No accessory muscle use. ABDOMEN/GI: Abdomen soft, non-tender. EXTREMITIES: No cyanosis or edema, non-tender, without signs of DVT. Assessment and Plan - Plan IUP at 20+wks, s/p rescue cerclage with Dr Wolf, done 11/08/17 EDC 03-28-18 strict BR with BSC SCD on legs but machine not turned on, explained again to patient her increased risk, machine turned on reg diet no evidence of infection Pt to see PND tomorrow for consult continue supportive care Discharge Planning: plan to transfer to level 3 NICU at 23 weeks
[2017-11-14] MEDS: Zolpidem Tartrate 5 MG Tablet PO PRN (20:01)
[2017-11-15] MEDS: Clindamycin 600 mg/NS Premix 600 MG/50 ML PIGGYBACK IV.SIG SCH ×3 (01:04→11:35)
[2017-11-15] MEDS: Polyethylene Glycol 3350 17 GM Packet PO SCH ×2 (08:31→09:34)
[2017-11-15] MEDS: Senna/Docusate Sodium 8.6/50 MG Tablet PO SCH ×2 (08:31→20:38)
--- NOTE | 2017-11-15 12:06 | P.CONOB ---
History of Present Illness Primary Care Physician: No Primary Care Physician Chief Complaint: Consultation requested by Dr. Wolf due to 20 weeks PROM History of Present Illness: Mrs. Lucas is a 32 year old AAF G1 at 21 weeks gestation. She had uncomplicated care until her 20 week anatomy ultrasound. At that visit her cervix was noted on ultrasound to be dilated. Dr. Wolf saw and evaluated her and diagnosed with with cervical insufficiency. She was admitted to the hospital, placed in trendelenberg position and a rescue cerclage placed. She was 3cm dilated with bulging membranes prior to the cerclage. She subsequently ruptured membranes on 11/11. She has continued to leak fluid but denies any foul odor or green/yellow color. She denies cramping or contractions. Cerclage is still in situ. Mrs. Lucas is very distraught and nearly inconsolable today. She refuses speculum examination. PMH: obesity PSH: gangion cyst of wrist POB: G1 PGyn: History of HSV, cultures for gonorrhea/chlamydia negative 08/25. Pap negative 09/2017. Denies cervical surgeries or procedures. All: ibuprofen, tramadol Meds: currently on clindamycin Soc: single, sister is social support Weeks Gestation:: 21 Para: 0 : 1 - Inpatient Certification I certify that the inpatient services were ordered in accordance with Medicare regulations governing the order. This includes certification that hospital inpatient services are reasonable and necessary and in the case of services not specified as inpatient-only under 42 CFR 419.22(n), that they are appropriately provided as inpatient services in accordance to with the 2-midnight benchmark under 43 CFR 412.3(e) Estimated Total Length of Stay (Days): 2 Plans for Post Hospital Care: Home Review of Systems All other systems reviewed negative except as stated in HPI PMFSH - History History Provided By: Patient - Travel History Recent Travel in the [place] Within the Last 8 Weeks: No Recent Travel Out of the Country Within the Last 8 Weeks: No Medications and Allergies Active Medications: Active Medications Aspirin (Ecotrin) 81 mg PO DAILY [facility] Last Admin: 11/15/17 08:31 Dose: 81 mg Cefazolin Sodium 1,000 mg/ (Sodium Chloride) 100 mls @ 200 mls/hr IV.SIG Q6H [facility] Last Admin: 11/15/17 10:03 Dose: 200 mls/hr Clindamycin/Sodium Chloride (Cleocin 600 Mg/Ns Premix) 600 mg in 50 mls @ 100 mls/hr IV.SIG Q6H [facility] Last Admin: 11/15/17 11:35 Dose: 100 mls/hr Lactated Ringer's (Lr 1000 Ml Inj) 1,000 mls @ 125 mls/hr IV.CONT .Q8H [facility] Last Admin: 11/15/17 08:32 Dose: 125 mls/hr Lorazepam (Ativan) 1 mg PO Q6H PRN PRN Reason: ANXIETY Last Admin: 11/12/17 21:39 Dose: 1 mg Morphine Sulfate (Morphine Inj) 2 mg IV.PUSH Q2H PRN PRN Reason: PAIN 1-10/UTERINE CRAMPING Last Admin: 11/08/17 23:46 Dose: 2 mg Polyethylene Glycol (Miralax) 17 gm PO DAILY [facility] Last Admin: 11/15/17 09:34 Dose: Not Given Potassium Chloride (Klor-Con 10) 10 meq PO DAILY [facility] Last Admin: 11/15/17 08:31 Dose: 10 meq Senna/Docusate Sodium (Anna-Colace) 1 tab PO BID [facility] Last Admin: 11/15/17 08:31 Dose: 1 tab Zolpidem Tartrate (Ambien) 5 mg PO HS PRN PRN Reason: SLEEP Last Admin: 11/14/17 20:01 Dose: 5 mg Allergies Allergy/AdvReac Type Severity Reaction Status Date / Time ibuprofen Allergy Severe Itching Verified 08/17/17 04:02 tramadol Allergy Severe Seizures Verified 08/17/17 04:02 Home Medications Medication Instructions Recorded Confirmed Type PNV #[id number] 1 tab PO DAILY 11/07/17 11/07/17 History Exam Vital signs: Vital Signs 11/14/17 14:00 11/14/17 16:59 11/14/17 20:19 Temperature 98.5 F 99.0 F 98.5 F Pulse Rate 81 Respiratory Rate 18 Blood Pressure 107/57 L 11/14/17 21:15 11/14/17 22:27 11/15/17 03:10 Temperature Pulse Rate Respiratory Rate 16 18 16 Blood Pressure 11/15/17 04:00 11/15/17 04:55 11/15/17 08:27 Temperature 98.6 F 97.9 F Pulse Rate Respiratory Rate 16 16 Blood Pressure 11/15/17 08:29 Temperature Pulse Rate 89 Respiratory Rate 17 Blood Pressure 115/58 L Intake & Output 11/14/17 11/15/17 11/15/17 18:59 06:59 18:59 Intake Total 200 / 200 1300 / 1300 100 / 100 Balance 200 / 200 1300 / 1300 100 / 100 Intake: IV 200 / 200 1300 / 1300 100 / 100 LR 1000 mL Inj 1,000 ML @ 125 1000 / 1000 mls/hr IV.CONT .Q8H [facility] Rx#: [id number] Cleocin 600 mg/NS Premix 600 mg 100 / 100 100 / 100 In 50 ml @ 100 mls/hr IV.SIG Q6H [facility] Rx#:[id number] Ancef Inj 1,000 MG In NS Inj 100 / 100 200 / 200 100 / 100 100 ML @ 200 mls/hr IV.SIG Q6H [facility] Rx#:[id number] - Constitutional no acute distress, obese Comments: inconsolable, crying - Routine HEENT Exam Head: Present: normocephalic, atraumatic Eye: Present: EOMI ENT: Present: mucous membranes moist - Routine Neck Exam Present: full ROM - Routine Respiratory Exam Absent: respiratory distress - Routine Abdominal Exam Present: soft. Absent: tenderness - Routine Exam Comments: patient refused sterile speculum exam - Additional findings Additional findings: JOSSELYN limited ultrasound: Fetus is cephalic, anhydramnios present consistent with PROM. See full report for details. Results - Labs CBC & Chem 7: 11/13/17 09:40 11/13/17 09:40 Caprini VTE Risk Assessment Caprini VTE Risk Assessment: No/Low Risk (score <= 1) (VTE risk assessment deferred to primary team) Caprini Risk Assessment Model: Point Value = 1 Point Value = 2 Point Value = 3 Point Value = 5 Age 41-60 Minor surgery BMI > 25 kg/m2 Swollen legs Varicose veins or History of unexplained or recurrent spontaneous Oral contraceptives or hormone replacement Sepsis (< 1 month) Serious lung disease, including pneumonia (< 1 month) Abnormal pulmonary function Acute myocardial infarction Congestive heart failure (< 1 month) History of inflammatory bowel disease Medical patient at bed rest Age 61-74 Arthroscopic surgery Major open surgery (> 45 min) Laparoscopic surgery (> 45 min) Malignancy Confined to bed (> 72 hours) Immobilizing plaster cast Central venous access Age >= 75 History of VTE Family history of VTE Factor V Leiden Prothrombin [id number] Lupus anticoagulant Anticardiolipin antibodies Elevated serum homocysteine Heparin-induced thrombocytopenia Other congenital or acquired thrombophilia Stroke (< 1 month) Elective arthroplasty Hip, pelvis, or leg fracture Acute spinal cord injury (< 1 month) Prophylaxis Regimen: Total Risk Factor Score Risk Level Prophylaxis Regimen 0-1 Low Early ambulation 2 Moderate Order ONE of the following: *Sequential Compression Device (SCD) *Heparin 5000 units SQ BID 3-4 Higher Order ONE of the following medications: *Heparin 5000 units SQ TID *Enoxaparin/Lovenox 40 mg SQ daily (WT < 150 kg, CrCl > 30 mL/min) *Enoxaparin/Lovenox 30 mg SQ daily (WT < 150 kg, CrCl > 10-29 mL/min) *Enoxaparin/Lovenox 30 mg SQ BID (WT < 150 kg, CrCl > 30 mL/min) AND/OR *Sequential Compression Device (SCD) 5 or more Highest Order ONE of the following medications: *Heparin 5000 units SQ TID (Preferred with Epidurals) *Enoxaparin/Lovenox 40 mg SQ daily (WT < 150 kg, CrCl > 30 mL/min) *Enoxaparin/Lovenox 30 mg SQ daily (WT < 150 kg, CrCl > 10-29 mL/min) *Enoxaparin/Lovenox 30 mg SQ BID (WT < 150 kg, CrCl > 30 mL/min) AND *Sequential Compression Device (SCD) Assessment and Plan - Diagnosis (1) Incompetent cervix Code(s): N88.3 - Incompetence of cervix uteri Status: Acute (2) Obstetric problem in patient at greater than 20 weeks gestation Code(s): O26.90 - related conditions, unspecified, unspecified trimester Status: Acute (3) premature rupture of membranes Code(s): O42.919 - premature rupture of membranes, unspecified as to length of time between rupture and onset of labor, unspecified trimester Status: Acute (4) Cervical cerclage suture present Code(s): O34.30 - Maternal care for cervical incompetence, unspecified trimester Status: Acute - Plan 1. 21 weeks PROM 2. Cervical insufficiency 3. Anhydramnios 4. Rescue cerclage in situ I discussed the overall poor prognosis for obtaining viability with Ms. Lucas today. The success for rescue cerclage with subsequent rupture is <20% for obtaining viability (23-24 weeks gestation). The risks of infection, abruption, spontaneous labor, demise due to cord accident were all discussed. It is very controversial to leave the cerclage suture in place given the high risk for infection. In addition, should she start to contract with the cerclage in place it may tear her cervix and cause further insufficiency in future pregnancies. Ideally, I would recommend performing a sterile speculum exam to evaluate her cervix, the cerclage suture and her fluid for signs of infection. Ms. Lucas refused a SSE exam by me, but maybe she may allow Dr. Wolf who placed the cerclage. Absolute indications for delivery include evidence of chorioamnionitis, abruption, labor or demise. Should any of these complications occur, the suture should be removed and the patient allowed to deliver. She is adamantly opposed to removal at this time and desires to continue the . Expectant management may be continued at [place] until 23 weeks at which time she should be transferred to a tertiary care center. She should continue inpatient management until delivery which should occur at 34 weeks unless indicated sooner by distress, abruption, labor, or chorioamnionitis. 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 Ms. Lucas is coping poorly with the situation. She is understandably upset that I could not give her better news or a better prognosis at this point. I explained that we can continue expectant management as she is requesting, but I have to be honest with her regarding the risks to her health and the long-term risks to her baby's health. Ms. Lucas expressed that she feels we are lying to her and her baby can survive at 20 weeks if it is delivered now. I empathized with her anxiety and strong desire to continue the , but reiterated the limits of medical care that we can provide to babies born at this gestational age. Recommendations: 1. Patient wants to continue expectant management. 2. Remove cerclage and deliver for signs or symptoms of chorioamnionitis, abruption, labor or demise. 3. Antibiotics for latency can be continued for 7 days. They should not be continued indefinitely. Typically, regimens include broad spectrum and GBS coverage- such as amoxicillin/erythromycin. 4. Should she achieve viability, she should be transferred to a tertiary care center at 23-24 weeks gestation for steroids, monitoring and inpatient management. 5. 1 hour GTT should be performed if not done already. 6. Consider repeating GC/CZ cultures. 7. Neonatology consultation may be helpful. 8. director of managed services consultation. 9. Consider psychology or psychiatry consultation for assistance coping with her current condition and the guarded prognosis at this point. Discharge Planning: plan to transfer to level 3 NICU at 23 weeks
--- NOTE | 2017-11-15 17:15 | P.OBANTE ---
Objective Vital Signs and I&O: Vital Signs 11/14/17 20:19 11/14/17 21:15 11/14/17 22:27 Temperature 98.5 F Pulse Rate Respiratory Rate 16 18 Blood Pressure 11/15/17 03:10 11/15/17 04:00 11/15/17 04:55 Temperature 98.6 F Pulse Rate Respiratory Rate 16 16 16 Blood Pressure 11/15/17 08:27 11/15/17 08:29 11/15/17 12:51 Temperature 97.9 F 98.3 F Pulse Rate 89 73 Respiratory Rate 17 17 Blood Pressure 115/58 L 134/64 11/15/17 16:31 11/15/17 16:33 Temperature 98.8 F Pulse Rate 87 Respiratory Rate 18 Blood Pressure 108/60 Intake & Output 11/14/17 11/15/17 11/15/17 18:59 06:59 18:59 Intake Total 200 / 200 1300 / 1300 100 / 100 Balance 200 / 200 1300 / 1300 100 / 100 Intake: IV 200 / 200 1300 / 1300 100 / 100 LR 1000 mL Inj 1,000 ML @ 125 1000 / 1000 mls/hr IV.CONT .Q8H [facility] Rx#: [id number] Cleocin 600 mg/NS Premix 600 mg 100 / 100 100 / 100 In 50 ml @ 100 mls/hr IV.SIG Q6H [facility] Rx#:[id number] Ancef Inj 1,000 MG In NS Inj 100 / 100 200 / 200 100 / 100 100 ML @ 200 mls/hr IV.SIG Q6H [facility] Rx#:[id number] Physical Exam: GENERAL: Well-nourished, well-developed patient. CARDIOVASCULAR: Regular rate and rhythm without murmurs, gallops, or rubs. RESPIRATORY: Breath sounds equal bilaterally. No accessory muscle use. ABDOMEN/GI: Abdomen soft, non-tender. EXTREMITIES: No cyanosis or edema, non-tender, without signs of DVT. Assessment and Plan - Plan 1. 21 weeks PROM 2. Cervical insufficiency 3. Anhydramnios 4. Rescue cerclage in situ 1. Pt seen by PND, poor prognoses of fetus discussed with pt. Pt wants to proceed with expectant management. 2. IV antibiotics discontinued and oral antibiotic ordered x 7 days 3. CBC ordered QOD 4. Pt remains afebrile, abd nontender, WBC stable. Remove cerclage and deliver for signs or symptoms of chorioamnionitis, abruption, labor or demise. Discharge Planning: plan to transfer to level 3 NICU at 23 weeks
[2017-11-15] MEDS: Zolpidem Tartrate 5 MG Tablet PO PRN (20:38)
[2017-11-15] MEDS: ERYTHROMYCIN BASE 500 MG PO SCH (22:30)
[2017-11-15 22:37] LABS: Baso % (Auto) 0.2 % (0.0-2.0); Eos # (Auto) 0.4 th/mm3 (0.0-0.4); Hematocrit 32.1 % (35.0-46.0); Hemoglobin 10.9 gm/dL (11.6-15.3); Lymph # (Auto) 2.4 th/mm3 (1.0-4.8); Lymph % (Auto) 23.9 % (9.0-44.0); Mean Corpuscular Hemoglobin 30.2 pg (27.0-34.0); Mean Corpuscular Volume 88.6 fL (80.0-100.0); Mean Platelet Volume 8.3 fL (7.0-11.0); Neut # (Auto) 6.1 th/mm3 (1.8-7.7); Neut % (Auto) 61.9 % (16.0-70.0); Platelet Count 280 th/mm3 (150-450); Red Blood Count 3.62 mil/mm3 (4.00-5.30); Red Cell Distribution Width 13.9 % (11.6-17.2); White Blood Count 9.9 th/mm3 (4.0-11.0)
[2017-11-16] MEDS: ERYTHROMYCIN BASE 500 MG PO SCH ×3 (06:13→21:34)
[2017-11-16] MEDS: Senna/Docusate Sodium 8.6/50 MG Tablet PO SCH ×2 (08:43→20:33)
[2017-11-16] MEDS: Polyethylene Glycol 3350 17 GM Packet PO SCH (08:43)
--- NOTE | 2017-11-16 13:23 | P.OBANTE ---
Objective Vital Signs and I&O: Vital Signs 11/15/17 16:31 11/15/17 16:33 11/15/17 20:00 Temperature 98.8 F 99.0 F Pulse Rate 87 Respiratory Rate 18 Blood Pressure 108/60 11/15/17 20:17 11/16/17 01:18 11/16/17 02:00 Temperature 98.0 F Pulse Rate 81 92 H Respiratory Rate 15 15 Blood Pressure 110/47 L 114/54 L 11/16/17 05:14 11/16/17 08:49 11/16/17 12:16 Temperature 98.1 F 98.6 F 98.5 F Pulse Rate 87 83 Respiratory Rate 15 16 16 Blood Pressure 96/48 L 117/60 11/16/17 12:17 Temperature Pulse Rate 93 H Respiratory Rate Blood Pressure 111/59 L Intake & Output 11/15/17 11/16/17 11/16/17 18:59 06:59 18:59 Intake Total 100 / 100 Balance 100 / 100 Intake: IV 100 / 100 Ancef Inj 1,000 MG In NS Inj 100 / 100 100 ML @ 200 mls/hr IV.SIG Q6H [facility] Rx#:[id number] Lab and Micro Results: Laboratory Results - last 24 hr 11/15/17 22:05 WBC 9.9 RBC 3.62 L Hgb 10.9 L Hct 32.1 L MCV 88.6 MCH 30.2 MCHC 34.0 RDW 13.9 Plt Count 280 MPV 8.3 Neut % (Auto) 61.9 Lymph % (Auto) 23.9 Lea % (Auto) 10.0 H Eos % (Auto) 4.0 Baso % (Auto) 0.2 Neut # (Auto) 6.1 Lymph # (Auto) 2.4 Lea # (Auto) 1.0 H Eos # (Auto) 0.4 Baso # (Auto) 0.0 WBC Differential . Differential Comment Auto diff final Physical Exam: GENERAL: Well-nourished, well-developed patient. CARDIOVASCULAR: Regular rate and rhythm without murmurs, gallops, or rubs. RESPIRATORY: Breath sounds equal bilaterally. No accessory muscle use. ABDOMEN/GI: Abdomen and uterus soft, non-tender. GENITOURINARY: External Genitalia: intact and normal in appearance EXTREMITIES: No cyanosis or edema, non-tender, without signs of DVT. Assessment and Plan - Plan 1. 21 weeks PROM 2. Cervical insufficiency 3. Anhydramnios 4. Rescue cerclage in situ pt doing well, VSS stable, abd nontender sma 7/cbc ordered tomorrow Discharge Planning: plan to transfer to level 3 NICU at 23 weeks
[2017-11-16] MEDS: Zolpidem Tartrate 5 MG Tablet PO PRN (21:33)
[2017-11-17] MEDS: ERYTHROMYCIN BASE 500 MG PO SCH ×3 (05:51→21:32)
--- NOTE | 2017-11-17 07:19 | P.OBANTE ---
Subjective Interval History: Doing well, No fever or chills Still leaking Slept well Good bowel function. Antepartum ROS: Reports: Loss of fluid, movement normal Objective Vital Signs and I&O: Vital Signs 11/16/17 08:49 11/16/17 12:16 11/16/17 12:17 Temperature 98.6 F 98.5 F Pulse Rate 83 93 H Respiratory Rate 16 16 Blood Pressure 117/60 111/59 L 11/16/17 16:51 11/16/17 16:55 11/16/17 20:35 Temperature 97.9 F 98.3 F Pulse Rate 92 H 97 H Respiratory Rate 16 Blood Pressure 118/64 120/59 L 11/17/17 02:31 11/17/17 05:11 Temperature 98.0 F 98.2 F Pulse Rate 98 H Respiratory Rate 18 Blood Pressure 126/43 L Physical Exam: GENERAL: Well-nourished, well-developed patient. CARDIOVASCULAR: Regular rate and rhythm without murmurs, gallops, or rubs. RESPIRATORY: Breath sounds equal bilaterally. No accessory muscle use. ABDOMEN/GI: Abdomen soft, non-tender. Fundus: [is non tender and just above the umbilicus-] EXTREMITIES: No cyanosis or edema, non-tender, without signs of DVT. Assessment and Plan - Plan 1. 21 weeks PROM 2. Cervical insufficiency 3. Anhydramnios 4. Rescue cerclage in situ Plan to continue bedrest Encouraged wearing the PCDs May have quick shower every couple of days. Plan to transfer to [facility] at 22 weekd which will be next week Neonatology to speak with her today. Check labs later today Discharge Planning: plan to transfer to level 3 NICU at 23 weeks
[2017-11-17 08:37] LABS: Baso % (Auto) 0.2 % (0.0-2.0); Eos # (Auto) 0.3 th/mm3 (0.0-0.4); Eos % (Auto) 3.4 % (0.0-4.0); Hematocrit 32.1 % (35.0-46.0); Hemoglobin 11.5 gm/dL (11.6-15.3); Lymph # (Auto) 1.7 th/mm3 (1.0-4.8); Mean Corpuscular HGB Conc 35.9 % (32.0-36.0); Mean Corpuscular Hemoglobin 31.5 pg (27.0-34.0); Mean Corpuscular Volume 87.7 fL (80.0-100.0); Mean Platelet Volume 8.2 fL (7.0-11.0); Mono # (Auto) 0.5 th/mm3 (0.0-0.9); Mono % (Auto) 5.9 % (0.0-8.0); Neut # (Auto) 5.3 th/mm3 (1.8-7.7); Neut % (Auto) 68.5 % (16.0-70.0); Platelet Count 301 th/mm3 (150-450); Red Blood Count 3.66 mil/mm3 (4.00-5.30); Red Cell Distribution Width 14.3 % (11.6-17.2); White Blood Count 7.8 th/mm3 (4.0-11.0)
[2017-11-17 09:10] LABS: Anion Gap 9 meq/L (5-15); Blood Urea Nitrogen 6 mg/dL (7-18); Calcium 8.9 mg/dL (8.5-10.1); Carbon Dioxide 24.4 meq/L (21.0-32.0); Chloride 104 meq/L (98-107); Glomerular Filtration Rate Greater Than 89 mL/min (>89); Glucose,Random 127 mg/dL (74-106); Potassium 3.3 meq/L (3.5-5.1); Sodium 137 meq/L (136-145)
[2017-11-17] MEDS: Polyethylene Glycol 3350 17 GM Packet PO SCH (09:34)
[2017-11-17] MEDS: Senna/Docusate Sodium 8.6/50 MG Tablet PO SCH ×2 (09:34→19:59)
--- NOTE | 2017-11-17 16:50 | P.CONPSY ---
Provisional Diagnosis Admission Date: November 07, 2017 11:06 History of Present Illness Service: Psychiatry Consult date: 11/17/17 Reason for Consult: 21 weeks , poor prognosis for fetus, and patient not coping well. Primary Care Provider: No Primary Care Physician Chief Complaint: Consultation requested by Dr. Wolf due to 20 weeks PROM History of Present Illness: Patient is a 32-year-old -[place] woman, single, domiciled with sister and [id number]-kui, recently unemployed, with a past psychiatric history of depression, bipolar schizophrenia as per patient, one previous psychiatric admission as a teenager, no previous suicide attempt or self-injurious behavior , no current outpatient mental health provider, with no significant past medical history, with a substance use history significant for marijuana use prior to her , currently admitted to the [facility] service for cervical insufficiency, anhydramnios, risk of cerclage in situ, whose fetus prognosis likley poor, patient not coping well, and felt [facility] treatment team are not truthful with her which psychiatry was consulted for evaluation. Patient was found lying on hospital bed, noted to be calm and cooperative, patient states that she is currently in the hospital and currently waiting to go to [facility] with the expectation of her baby to be delivered when reaching 24 weeks. Patient states that she plans on staying with the baby once patient is born. Patient states that the providers here in the hospital have spoken to her about the other possibilities or negative outcome stating that she does not want to continue with the "negative talk" which she was told that her water had broke and that she is at high risk for the baby. She states that she understands that if the baby would come that the baby would not make it. Patient then goes on to explain the possibilities which are the baby would be born to survive, the baby would be born be sick and aware of the possibility of the baby not making it. Patient states that she is hopeful despite of what she has been told and has been relying heavily on her johnnie and episcopal that her baby will make it. She also mentions that she has strong support by her sister who is a nurse and a administrative aide we will also have told her the same. Patient reports not having any difficulty with sleep, appetite or energy although reports having had decreased concentration of 0 since she was a child, and that her mood has been "somewhat depressed" due to current circumstances but denying any suicidal homicidal ideations, denies any perceptual services or delusions at this time. Rest of psychiatric ROS negative. Past psychiatric history: Patient reports previous psychiatric diagnoses depression, bipolar and schizophrenia as per patient, one previous psychiatric admission as a teenager, no previous suicide attempt or self injurious behavior , no current outpatient mental health follow-up. Patient has had previous medication trials with Prozac, Risperdal, Zoloft and another antidepressant which he cannot recall more than 5 years ago as well as during teenage years. Substance use history: Denies any tobacco or alcohol or illicit drug use but reports prior to her finding out she was had been drinking alcohol on rare occasions and using marijuana up to July 19, 2017 when she found out she was . Patient denies use of any other drugs. Past medical history: Denies Allergies: Tramadol, ibuprofen Social history: Patient single, domiciled with his sister and has been, recently unemployed prior to her , no background, no access to firearms. Patient reports education high school diploma, was in special Ed. classes. Patient reports her father having several years ago. Review of Systems All other systems reviewed negative except as stated in HPI PMFSH - History History Provided By: Patient, Medical Record - Travel History Recent Travel in the [place] Within the Last 8 Weeks: No Recent Travel Out of the Country Within the Last 8 Weeks: No Medications and Allergies Active Medications: Active Medications Amoxicillin (Amoxil) 500 mg PO TID [facility] Stop: 11/22/17 17:59 Last Admin: 11/17/17 13:40 Dose: 500 mg Aspirin (Ecotrin) 81 mg PO DAILY [facility] Last Admin: 11/17/17 09:34 Dose: 81 mg Erythromycin (Herbert-Tab) 500 mg PO Q8HR [facility] Stop: 11/22/17 21:59 Last Admin: 11/17/17 14:34 Dose: 500 mg Lorazepam (Ativan) 1 mg PO Q6H PRN PRN Reason: ANXIETY Last Admin: 11/12/17 21:39 Dose: 1 mg Morphine Sulfate (Morphine Inj) 2 mg IV.PUSH Q2H PRN PRN Reason: PAIN 1-10/UTERINE CRAMPING Last Admin: 11/08/17 23:46 Dose: 2 mg Polyethylene Glycol (Miralax) 17 gm PO DAILY [facility] Last Admin: 11/17/17 09:34 Dose: 17 gm Potassium Chloride (Klor-Con 10) 20 meq PO DAILY [facility] Senna/Docusate Sodium (Anna-Colace) 1 tab PO BID [facility] Last Admin: 11/17/17 09:34 Dose: 1 tab Zolpidem Tartrate (Ambien) 5 mg PO HS PRN PRN Reason: SLEEP Last Admin: 11/16/17 21:33 Dose: 5 mg Allergies Allergy/AdvReac Type Severity Reaction Status Date / Time ibuprofen Allergy Severe Itching Verified 08/17/17 04:02 tramadol Allergy Severe Seizures Verified 08/17/17 04:02 Home Medications Medication Instructions Recorded Confirmed Type PNV #[id number] 1 tab PO DAILY 11/07/17 11/07/17 History Exam Vital signs: Vital Signs 11/16/17 16:51 11/16/17 16:55 11/16/17 20:35 Temperature 97.9 F 98.3 F Pulse Rate 92 H 97 H Respiratory Rate 16 Blood Pressure 118/64 120/59 L 11/16/17 21:00 11/17/17 02:31 11/17/17 05:11 Temperature 98.0 F 98.2 F Pulse Rate 98 H Respiratory Rate 16 18 Blood Pressure 126/43 L 11/17/17 08:29 11/17/17 08:30 11/17/17 13:50 Temperature 98.3 F 98.6 F Pulse Rate 114 H Respiratory Rate 16 16 Blood Pressure 98/61 L 11/17/17 13:51 Temperature Pulse Rate 98 H Respiratory Rate Blood Pressure 108/72 Narrative: Patient not noted to be in acute distress, no gross motor abnormalities, no tremors or EPS, no noted psychomotor retardation or agitation. - Constitutional no acute distress, cooperative Mental Status Examination Appearance: Appropriate Consciousness: Alert Orientation: x4 Speech: Unremarkable Language: Adequate Fund of Knowledge: Poor Attention and Concentration: Adequate Memory: Unremarkable Mood: Sad Affect: Sad Thought Process & Associations: Intact, Other (concrete) Thought Content: Appropriate Hallucination Type: None Delusion Type: None Suicidal Ideation: No Suicidal Plan: No Suicidal Intention: No Homicidal Ideation: No Homicidal Plan: No Homicidal Intention: No Insight: Fair Judgment: Impulsive Assessment and Plan - Assessment (1) Psychological and behavioral factors associated with disorders or diseases classified elsewhere Code(s): F54 - Psychological and behavioral factors associated with disorders or diseases classified elsewhere Status: Acute (2) premature rupture of membranes Code(s): O42.919 - premature rupture of membranes, unspecified as to length of time between rupture and onset of labor, unspecified trimester Status: Acute - Plan Plan: Estimated LOS: [] days Patient is a 32-year-old -[place] woman, with a previous psychiatric diagnoses depression, one previous psychiatric admission as a teenager, no previous suicide attempt or self-injurious behavior, who was admitted to the OB/ EMERGENCY TECHNICIAN service to return rupture of membranes which fetus likely with poor prognosis and patient with difficulty except this possibility which psychiatry was consulted for evaluation. Patient at this time does not have any acute manic or psychotic symptoms although has depressed mood which is expected due to reports of poor prognosis of her fetus which patient is refusing to accept although is cognizant of this possibility and relying heavily on her johnnie and hopes that fetus will survive. Patient at this time does not present with any acute psychiatric symptomatology that would require require any acute psychiatric intervention at this time but would benefit from continued support if there is demise in the near future. Patient to continue current recommendations as per primary medical team. Consult appreciated. Justification for Continued Inpatient Stay: At risk of further decompensation a lower level of care.
[2017-11-17] MEDS: Zolpidem Tartrate 5 MG Tablet PO PRN (19:59)
[2017-11-18] MEDS: ERYTHROMYCIN BASE 500 MG PO SCH ×3 (05:42→21:08)
[2017-11-18] MEDS: Senna/Docusate Sodium 8.6/50 MG Tablet PO SCH ×2 (09:24→20:15)
[2017-11-18] MEDS: Polyethylene Glycol 3350 17 GM Packet PO SCH (09:25)
--- NOTE | 2017-11-18 09:58 | P.OBANTE ---
Subjective Interval History: +FM , no ctx, +LOF last night, no VB, has some back pain from lying in bed Objective Vital Signs and I&O: Vital Signs 11/17/17 13:50 11/17/17 13:51 11/17/17 17:16 Temperature 98.6 F 98.6 F Pulse Rate 98 H 91 H Respiratory Rate 16 16 Blood Pressure 108/72 113/56 L 11/17/17 19:56 11/17/17 23:45 11/17/17 23:46 Temperature 98.7 F 98.3 F Pulse Rate 89 103 H Respiratory Rate 16 16 Blood Pressure 104/61 112/97 H 11/18/17 03:16 11/18/17 03:17 11/18/17 07:55 Temperature 98.1 F 98.7 F Pulse Rate 92 H 113 H Respiratory Rate 16 16 Blood Pressure 110/58 L 122/62 Lab and Micro Results: Laboratory Results - last 24 hr 11/17/17 16:00 Chlam trachomat DNA PCR Not detected N.gonorrhoeae DNA (PCR) Not detected Physical Exam: GENERAL: Well-nourished, well-developed patient. CARDIOVASCULAR: Regular rate and rhythm without murmurs, gallops, or rubs. RESPIRATORY: Breath sounds equal bilaterally. No accessory muscle use. ABDOMEN/GI: Abdomen soft, non-tender. Fundus: [-] GENITOURINARY: External Genitalia: intact and normal in appearance Cervix: [-] deferred Dilatation: [-] Effacement: [-] Station: [-] Presentation: [-] Membranes: [-] Uterine Contractions: [-] FHT's: Category: [-] 1 Baseline: [-] Reactive: [-] Variability: [-] AQA Decels: [-] EXTREMITIES: No cyanosis or edema, non-tender, without signs of DVT. Assessment and Plan - Diagnosis (1) Incompetent cervix Code(s): N88.3 - Incompetence of cervix uteri Status: Acute (2) Obstetric problem in patient at greater than 20 weeks gestation Code(s): O26.90 - related conditions, unspecified, unspecified trimester Status: Acute (3) premature rupture of membranes Code(s): O42.919 - premature rupture of membranes, unspecified as to length of time between rupture and onset of labor, unspecified trimester Status: Acute (4) Cervical cerclage suture present Code(s): O34.30 - Maternal care for cervical incompetence, unspecified trimester Status: Acute - Plan 1. 21 weeks 3 days PROM 2. Cervical insufficiency 3. Anhydramnios 4. Rescue cerclage in situ Plan to continue bedrest Encouraged wearing the PCDs May have quick shower every couple of days. Plan to transfer to [facility] at 22 weeks which will be next week CBC on monday, will try to get egg crate mattress Discharge Planning: plan to transfer to level 3 NICU at 22 weeks - Attending Attestation pt seen by me
[2017-11-18] MEDS ORDERED: Famotidine 20 MG Tablet PO PRN (19:08)
[2017-11-18] MEDS: Zolpidem Tartrate 5 MG Tablet PO PRN (20:15)
[2017-11-19] MEDS: ERYTHROMYCIN BASE 500 MG PO SCH ×3 (05:54→21:51)
[2017-11-19 08:49] LABS: Baso % (Auto) 0.3 % (0.0-2.0); Eos # (Auto) 0.4 th/mm3 (0.0-0.4); Eos % (Auto) 4.4 % (0.0-4.0); Hematocrit 36.4 % (35.0-46.0); Hemoglobin 12.4 gm/dL (11.6-15.3); Lymph # (Auto) 2.1 th/mm3 (1.0-4.8); Lymph % (Auto) 24.1 % (9.0-44.0); Mean Corpuscular Hemoglobin 29.9 pg (27.0-34.0); Mean Corpuscular Volume 88.1 fL (80.0-100.0); Mean Platelet Volume 8.2 fL (7.0-11.0); Mono # (Auto) 0.8 th/mm3 (0.0-0.9); Mono % (Auto) 9.6 % (0.0-8.0); Neut # (Auto) 5.3 th/mm3 (1.8-7.7); Neut % (Auto) 61.6 % (16.0-70.0); Platelet Count 332 th/mm3 (150-450); Red Blood Count 4.14 mil/mm3 (4.00-5.30); Red Cell Distribution Width 13.9 % (11.6-17.2); White Blood Count 8.5 th/mm3 (4.0-11.0)
--- NOTE | 2017-11-19 09:27 | P.OBANTE ---
Subjective Interval History: pt reports +FM, no ctx, minimal LOF, no VB Objective Vital Signs and I&O: Vital Signs 11/18/17 11:44 11/18/17 15:36 11/18/17 15:37 Temperature 98.2 F 99.1 F Pulse Rate 97 H 98 H Respiratory Rate 18 18 Blood Pressure 109/56 L 111/60 11/18/17 16:54 11/18/17 18:07 11/18/17 19:06 Temperature 99.4 F 98.8 F 98.2 F Pulse Rate 92 H Respiratory Rate 16 Blood Pressure 116/71 11/18/17 21:06 11/18/17 23:48 11/19/17 03:57 Temperature 98.0 F 98.2 F 98.1 F Pulse Rate 94 H Respiratory Rate 16 16 Blood Pressure 114/61 11/19/17 03:58 11/19/17 05:53 11/19/17 07:36 Temperature 98.4 F 98.2 F Pulse Rate 104 H Respiratory Rate 18 Blood Pressure 101/51 L 11/19/17 07:37 Temperature Pulse Rate 95 H Respiratory Rate Blood Pressure 122/61 Lab and Micro Results: Laboratory Results - last 24 hr 11/19/17 08:39 WBC 8.5 RBC 4.14 Hgb 12.4 Hct 36.4 MCV 88.1 MCH 29.9 MCHC 34.0 RDW 13.9 Plt Count 332 MPV 8.2 Neut % (Auto) 61.6 Lymph % (Auto) 24.1 Hopkins % (Auto) 9.6 H Eos % (Auto) 4.4 H Baso % (Auto) 0.3 Neut # (Auto) 5.3 Lymph # (Auto) 2.1 Hopkins # (Auto) 0.8 Eos # (Auto) 0.4 Baso # (Auto) 0.0 WBC Differential . Differential Comment Auto diff final Physical Exam: GENERAL: Well-nourished, well-developed patient. CARDIOVASCULAR: Regular rate and rhythm without murmurs, gallops, or rubs. RESPIRATORY: Breath sounds equal bilaterally. No accessory muscle use. ABDOMEN/GI: Abdomen soft, non-tender. Fundus: [-] GENITOURINARY: External Genitalia: intact and normal in appearance Cervix: [-] deferred Dilatation: [-] Effacement: [-] Station: [-] Presentation: [-] Membranes: [-] Uterine Contractions: [-] FHT's: Category: [-] appropriate for gest age Baseline: [-] Reactive: [-] Variability: [-] Decels: [-] EXTREMITIES: No cyanosis or edema, non-tender, without signs of DVT. Assessment and Plan - Diagnosis (1) Incompetent cervix Code(s): N88.3 - Incompetence of cervix uteri Status: Acute (2) Obstetric problem in patient at greater than 20 weeks gestation Code(s): O26.90 - related conditions, unspecified, unspecified trimester Status: Acute (3) premature rupture of membranes Code(s): O42.919 - premature rupture of membranes, unspecified as to length of time between rupture and onset of labor, unspecified trimester Status: Acute (4) Cervical cerclage suture present Code(s): O34.30 - Maternal care for cervical incompetence, unspecified trimester Status: Acute - Plan 1. 21 weeks 4 days PROM 2. Cervical insufficiency 3. Anhydramnios 4. Rescue cerclage in situ Plan to continue bedrest Encouraged wearing the PCDs May have quick shower every couple of days. Plan to transfer [facility] at 22 weeks which will be next week CBC today stable Discharge Planning: plan to transfer to level 3 NICU at 22 weeks - Attending Attestation pt seen by me
[2017-11-19] MEDS: Senna/Docusate Sodium 8.6/50 MG Tablet PO SCH ×2 (09:51→20:15)
[2017-11-19] MEDS: Polyethylene Glycol 3350 17 GM Packet PO SCH (09:51)
[2017-11-19] MEDS: Zolpidem Tartrate 5 MG Tablet PO PRN (20:18)
[2017-11-20] MEDS: ERYTHROMYCIN BASE 500 MG PO SCH ×2 (06:07→14:55)
--- NOTE | 2017-11-20 09:08 | P.OBANTE ---
Objective Vital Signs and I&O: Vital Signs 11/19/17 09:50 11/19/17 12:36 11/19/17 14:14 Temperature 98.5 F 99.3 F 98.9 F Pulse Rate 96 H Respiratory Rate 18 Blood Pressure 103/51 L 11/19/17 15:47 11/19/17 15:48 11/19/17 17:45 Temperature 99.3 F 98.0 F Pulse Rate 107 H Respiratory Rate 18 Blood Pressure 108/57 L 11/19/17 20:06 11/19/17 21:51 11/19/17 23:43 Temperature 98.1 F 98.7 F 98.8 F Pulse Rate 92 H Respiratory Rate 16 16 Blood Pressure 106/55 L 11/19/17 23:44 11/20/17 03:55 11/20/17 06:07 Temperature 98.8 F 99.0 F Pulse Rate 101 H 95 H Respiratory Rate 18 Blood Pressure 127/68 134/70 Physical Exam: GENERAL: Well-nourished, well-developed patient. CARDIOVASCULAR: Regular rate and rhythm without murmurs, gallops, or rubs. RESPIRATORY: Breath sounds equal bilaterally. No accessory muscle use. ABDOMEN/GI: Abdomen soft, non-tender GENITOURINARY: External Genitalia: intact and normal in appearance EXTREMITIES: No cyanosis or edema, non-tender, without signs of DVT. Assessment and Plan - Plan 1. 21 weeks 5 days PROM 2. Cervical insufficiency 3. Anhydramnios 4. Rescue cerclage in situ Plan to continue bedrest Encouraged wearing the PCDs CBC AND BMP ORDERED 11/21 routine care Discharge Planning: plan to transfer to level 3 NICU at 22 weeks
[2017-11-20] MEDS: Senna/Docusate Sodium 8.6/50 MG Tablet PO SCH (09:43)
[2017-11-20] MEDS: Polyethylene Glycol 3350 17 GM Packet PO SCH (09:43)
[2017-11-21] MEDS: ERYTHROMYCIN BASE 500 MG PO SCH ×4 (01:20→22:17)
[2017-11-21] MEDS: Senna/Docusate Sodium 8.6/50 MG Tablet PO SCH ×3 (01:20→20:23)
[2017-11-21 05:56] LABS: Baso % (Auto) 0.3 % (0.0-2.0); Eos # (Auto) 0.4 th/mm3 (0.0-0.4); Eos % (Auto) 4.4 % (0.0-4.0); Hematocrit 34.6 % (35.0-46.0); Hemoglobin 11.7 gm/dL (11.6-15.3); Lymph # (Auto) 2.2 th/mm3 (1.0-4.8); Lymph % (Auto) 26.4 % (9.0-44.0); Mean Corpuscular HGB Conc 33.8 % (32.0-36.0); Mean Corpuscular Hemoglobin 30.2 pg (27.0-34.0); Mean Corpuscular Volume 89.3 fL (80.0-100.0); Mean Platelet Volume 8.3 fL (7.0-11.0); Mono # (Auto) 0.8 th/mm3 (0.0-0.9); Neut # (Auto) 5.1 th/mm3 (1.8-7.7); Neut % (Auto) 59.9 % (16.0-70.0); Platelet Count 327 th/mm3 (150-450); Red Blood Count 3.88 mil/mm3 (4.00-5.30); White Blood Count 8.5 th/mm3 (4.0-11.0)
[2017-11-21 06:23] LABS: Anion Gap 7 meq/L (5-15); Blood Urea Nitrogen 7 mg/dL (7-18); Calcium 9.2 mg/dL (8.5-10.1); Chloride 106 meq/L (98-107); Glomerular Filtration Rate Greater Than 89 mL/min (>89); Glucose,Random 81 mg/dL (74-106); Potassium 3.8 meq/L (3.5-5.1); Sodium 138 meq/L (136-145)
[2017-11-21] MEDS: Polyethylene Glycol 3350 17 GM Packet PO SCH (08:55)
--- NOTE | 2017-11-21 12:51 | P.OBANTE ---
Subjective Interval History: FEELS BABY MOVING Objective Vital Signs and I&O: Vital Signs 11/20/17 14:00 11/20/17 16:49 11/20/17 21:22 Temperature 98.7 F Pulse Rate 90 94 H Respiratory Rate 18 Blood Pressure 113/57 L 116/56 L 11/20/17 21:23 11/21/17 07:28 Temperature 97.7 F 98.4 F Pulse Rate 100 H Respiratory Rate 18 Blood Pressure 119/63 Lab and Micro Results: Laboratory Results - last 24 hr 11/21/17 11/21/17 05:10 05:10 WBC 8.5 RBC 3.88 L Hgb 11.7 Hct 34.6 L MCV 89.3 MCH 30.2 MCHC 33.8 RDW 14.0 Plt Count 327 MPV 8.3 Neut % (Auto) 59.9 Lymph % (Auto) 26.4 Lawrence % (Auto) 9.0 H Eos % (Auto) 4.4 H Baso % (Auto) 0.3 Neut # (Auto) 5.1 Lymph # (Auto) 2.2 Lawrence # (Auto) 0.8 Eos # (Auto) 0.4 Baso # (Auto) 0.0 WBC Differential . Differential Comment Auto diff final Sodium 138 Potassium 3.8 Chloride 106 Carbon Dioxide 25.0 Anion Gap 7 BUN 7 Creatinine 0.78 Estimated GFR Greater than 89 Random Glucose 81 Calcium 9.2 Physical Exam: GENERAL: Well-nourished, well-developed patient. CARDIOVASCULAR: Regular rate and rhythm without murmurs, gallops, or rubs. RESPIRATORY: Breath sounds equal bilaterally. No accessory muscle use. ABDOMEN/GI: Abdomen soft, non-tender. External Genitalia: intact and normal in appearance EXTREMITIES: No cyanosis or edema, non-tender, without signs of DVT. Assessment and Plan - Plan 1. 21 weeks 6 days PROM 2. Cervical insufficiency 3. Anhydramnios 4. Rescue cerclage in situ Plan to continue bedrest Encouraged wearing the PCDs CBC AND BMP STABLE AFEBRILE PLAN TO TRANSFER TOMORROW routine care Discharge Planning: plan to transfer to level 3 NICU at 22 weeks
[2017-11-21 19:28] VITALS: RESP 18
[2017-11-21] MEDS: Zolpidem Tartrate 5 MG Tablet PO PRN (20:23)
[2017-11-22] MEDS: ERYTHROMYCIN BASE 500 MG PO SCH (06:01)
[2017-11-22] MEDS: Senna/Docusate Sodium 8.6/50 MG Tablet PO SCH (08:55)
[2017-11-22] MEDS: Polyethylene Glycol 3350 17 GM Packet PO SCH (10:09)
--- NOTE | 2017-11-22 12:23 | P.OBANTE ---
Subjective Antepartum ROS: Reports: Loss of fluid, movement normal Objective Vital Signs and I&O: Vital Signs 11/21/17 13:17 11/21/17 16:00 11/21/17 18:00 Temperature 98.4 F 98.0 F 97.8 F Pulse Rate 106 H Respiratory Rate 16 Blood Pressure 139/57 L 11/21/17 19:27 11/21/17 19:34 11/22/17 00:00 Temperature 98.1 F 98.0 F Pulse Rate 106 H 106 H Respiratory Rate 18 18 Blood Pressure 116/77 11/22/17 02:00 11/22/17 05:53 11/22/17 08:54 Temperature 98.1 F 98.6 F Pulse Rate 107 H 133 H 95 H Respiratory Rate 18 18 18 Blood Pressure 107/53 L 133/77 117/64 Physical Exam: GENERAL: Well-nourished, well-developed patient. CARDIOVASCULAR: Regular rate and rhythm without murmurs, gallops, or rubs. RESPIRATORY: Breath sounds equal bilaterally. No accessory muscle use. ABDOMEN/GI: Abdomen soft, non-tender. Fundus: nontender EXTREMITIES: No cyanosis or edema, non-tender, without signs of DVT. Assessment and Plan - Plan 1. 22 weeks PROM 2. Cervical insufficiency 3. Anhydramnios 4. Rescue cerclage in situ Plan to continue bedrest AFEBRILE PLAN TO TRANSFER to [facility] routine care Discharge Planning: pt to be transferred today to level 3 NICU
[2017-11-22 12:25] VITALS: BP 118/63; PULSE 99; TEMP 97.9
--- NOTE | 2017-11-22 12:40 | P.DS ---
Date of admission: 11/07/17 11:06 Primary care physician: No Primary Care Physician Attending physician on discharge: Jayme Wolf Anticipated date of discharge: 11/22/17 (transfer to [facility] for level # 3NICU) Brief History from admission: Mrs. Lucas is a 32 year old AAF G1 at 21 weeks gestation. She had uncomplicated care until her 20 week anatomy ultrasound. At that visit her cervix was noted on ultrasound to be dilated. Dr. Wolf saw and evaluated her and diagnosed with with cervical insufficiency. She was admitted to the hospital, placed in trendelenberg position and a rescue cerclage placed. She was 3cm dilated with bulging membranes prior to the cerclage. She subsequently ruptured membranes on 11/11. She has continued to leak fluid but denies any foul odor or green/yellow color. She denies cramping or contractions. Cerclage is still in situ. Mrs. Lucas is very distraught and nearly inconsolable today. She refuses speculum examination. PMH: obesity PSH: gangion cyst of wrist POB: G1 PGyn: History of HSV, cultures for gonorrhea/chlamydia negative 08/25. Pap negative 09/2017. Denies cervical surgeries or procedures. All: ibuprofen, tramadol Meds: currently on clindamycin Soc: single, sister is social support DS: Diagnosis - Discharge Diagnosis (1) Incompetent cervix Status: Acute (2) Obstetric problem in patient at greater than 20 weeks gestation Status: Acute (3) premature rupture of membranes Status: Acute (4) Cervical cerclage suture present Status: Acute (5) Psychological and behavioral factors associated with disorders or diseases classified elsewhere Status: Acute DS: Summary Hospital Course: 20 week incompetent cervix, dilated 3 cm cerclage placed premature rupture of membrane treatment with iv and oral antibiotics anhydramnios transfer to [facility] for level 3 NICU - Time Spent with Patient Total time spent providing and/or coordinating discharge services: Less than 30 minutes Exam Vital signs: Vital Signs 11/21/17 13:17 11/21/17 16:00 11/21/17 18:00 Temperature 98.4 F 98.0 F 97.8 F Pulse Rate 106 H Respiratory Rate 16 Blood Pressure 139/57 L 11/21/17 19:27 11/21/17 19:34 11/22/17 00:00 Temperature 98.1 F 98.0 F Pulse Rate 106 H 106 H Respiratory Rate 18 18 Blood Pressure 116/77 11/22/17 02:00 11/22/17 05:53 11/22/17 08:54 Temperature 98.1 F 98.6 F Pulse Rate 107 H 133 H 95 H Respiratory Rate 18 18 18 Blood Pressure 107/53 L 133/77 117/64 11/22/17 12:23 Temperature 97.9 F Pulse Rate 99 H Respiratory Rate 18 Blood Pressure 118/63 Narrative: see antepartum note Results Procedures completed during hospitalization: monitor for infection Discharge Plan - Discharge Disposition Patient Disposition: 70 Transfer To Other Facility - Discharge Condition Condition: Good - Discharge Order Discharge Orders: Discharge Order (Routine); Ordered 11/22/17 Ordered By: Eugenie Soto SCHEDULING COORDINATOR Clear for Discharge (Routine); Ordered 11/22/17 Ordered By: Eugenie Soto - Physicians Team Primary Care Provider: Primary Care Charlotte Shaver Attending Provider: Jayme Wolf Other Providers: Linh Escudero MD ; Nehemiah Boyer MD - Rxs /Orders / Referrals /Forms Prescriptions: Continue PNV #[id number] 30 mg iron-10 mg iron-1 mg Capsule 1 tab PO DAILY Referrals: Primary Care Charlotte Shaver [Primary Care Provider] - See Instructions - Discharge Instructions Patient Printed Instructions: Cervical Cerclage (DC) - Post Discharge Care Plan Care Plan Goals: Your Health Problems: Goals to Promote Your Health: * To prevent worsening of your condition * To maintain your health at the optimal level Directions to Meet Your Goals: * Take your medications as prescribed * Follow your dietary instruction * Follow activity as directed * Keep your appointments as scheduled * Take your immunizations and boosters as scheduled * If your symptoms worsen call your PCP * If no PCP go to Urgent Care or Emergency Room Smoking is dangerous to your health. Avoid second hand smoke. You may reach the 24-hour crisis hotline for domestic abuse at .
--- NOTE | 2017-11-23 11:03 | MP ---
cc: Renato Wolf MD, R John MD Smith,Ana Maria Garzon MD DATE OF OPERATION: 11/08/2017 PREOPERATIVE DIAGNOSES: 1. Intrauterine at 20 weeks. 2. Incompetent cervix. 3. Advanced cervical dilation. POSTOPERATIVE DIAGNOSES: 1. Intrauterine at 20 weeks. 2. Incompetent cervix. 3. Advanced cervical dilation. PROCEDURE PERFORMED: Rescue cerclage. SURGEON: Renato Wolf MD CO-SURGEON: Ana Maria Head MD FINDINGS: The vagina was clean. The cervix was open, probably 2 cm. The baby's head was visible. There was a bulging bag of water. There were no lesions. COMPLICATIONS: None. COUNTS: Correct. ESTIMATED BLOOD LOSS: Minimal. DISPOSITION: The patient tolerated the procedure well and went to the recovery room in good condition. INDICATIONS FOR PROCEDURE: This is a young lady who came in for her routine 20-week ultrasound, who was not having any problems and was found to have a cervix dilated to 3 cm the day prior to the procedure. She was immediately put in the hospital, given IV hydration and placed in steep Trendelenburg in anticipation of a rescue cerclage. After explaining the risks and the benefits and the probable failure of this, she agreed to proceed. She wanted to do everything to save the baby. I called in Ana Maria Head, the co-surgeon, for help. PROCEDURE IN DETAIL: The patient was taken to the operating room, identified by name band verbally, given a spinal anesthetic, prepped and draped in the usual sterile manner in Trendelenburg for vaginal surgery. I called in Ana Maria Head to help me with this procedure. A weighted speculum was placed in the vagina and the anterior lip of the cervix was grasped with a single-tooth tenaculum very gently. There was a bulging bag of water. We placed a 30 mL Gonzalez catheter into the cervical os and blew it up to prevent rupture of membranes. A single stitch was placed with Prolene in a circumferential pursestring type suture. We tied this down. It looked really good. The Gonzalez catheter was deflated and pulled out. Blood loss was minimal and, once we were happy with this, we took the patient to the recovery room in satisfactory condition. She tolerated the procedure well. We will keep her at least overnight to make sure there are no complications, and she will be on bedrest for some time. RMD JAIME Weir/ , 05:54 PM , 06:02 PM
== END 2017-11-22 13:14 | disposition short-term general hospital (02) ==
LOC: H2E
PROVIDERS: ADMIT Obstetrics & Gynecology; ATTEND Obstetrics & Gynecology